=== PATIENT | female | born 1965 | race Caucasian/White ===

== ENCOUNTER 2018-01-22 17:27 | Inpatient (IN) | payer MEDICARE, OTHER ==
--- NOTE | 2018-01-22 17:46 | ED Physician Chart ---
ED Chief Complaint/HPI - Patient Information Date Seen:: 01/22/18 Time Seen:: 17:30 Chief Complaint:: agitation History of Present Illness:: Patient has apparently been exhibiting aggressive and agitated behavior at her extended care facility. Patient's and having diarrhea all week. Historian:: Patient Review:: Transfer documents Reviewed ED Review of Systems - Review of Systems General/Constitutional: No fever, No chills, No weight loss, No weakness, No diaphoresis, No edema, No loss of appetite Skin: No skin lesions, No rash, No bruising Head: No headache, No light-headedness Eyes: No loss of vision, No pain, No diplopia ENT: No earache, No nasal drainage, No sore throat, No tinnitus Neck: No neck pain, No swelling, No thyromegaly, No stiffness, No mass noted Cardio Vascular: No chest pain, No palpitations, No PND, No orthopnea, No edema Pulmonary: No SOB, No cough, No sputum, No wheezing GI: No vomiting, Diarrhea, Pain, No melena, No hematochezia, No constipation, No hematemesis G/U: No dysuria, No frequency, No hematuria Musculoskeletal: No bone or joint pain, No back pain, No muscle pain Endocrine: No polyuria, No polydipsia Psychiatric: No prior psych history, No depression, No anxiety, No suicidal ideation Hematopoietic: No bruising, No lymphadenopathy Allergic/Immuno: No urticaria, No angioedema Neurological: No syncope, No focal symptoms, No weakness, No paresthesia, No headache, No seizure, No dizziness, No confusion, No vertigo ED Past Medical History - Past Medical History Past Medical History: DM, Seizures, Other (ulcerative colitis; status post transient ischemic attack; bipolar disorder) Family History: Other (adopted) Social History: Smoker, Other (smokes up to one and one half packages cigarettes a day; drinks alcohol occasionally) Surgical History: other (small atopic nipple resection) Psychiatricy History: Bipolar Family Medical History - Family Member Mother History Unknown: Yes ED Physical Exam - Physical Examination General/Constitutional: Awake, Well-developed, well-nourished, Alert, No distress, GCS 15, Non-toxic appearing, Ambulatory Other Gen/Cons comments:: Alert and oriented to the correct year only ENMT: Oropharynx nl (edentulous) Neck: No nuchal rigidity Respiratory: Nl effort/Exclusion, Clear to Auscultation Cardio Vascular: RRR, No murmur, gallop, rubs GI: No tenderness/rebounding/guarding : No CVA tenderness Extremities: No edema Neuro/Psych: Alert/oriented Misc: Normal back ED Labs/Radiology/EKG Results - EKG Interpretations Rate & Rhythm: normal sinus rhythm with a rate of 81 [place]: borderline left axis deviation ED Septic Shock - . Is Septic Shock (SBP<90, OR Lactate>4 mmol\L) present?: No
[2018-01-22 18:14] LABS: % BASOPHILS 0.9 % (0.0-2.0); % LYMPHOCYTES 32.6 % (20.0-50.0); % MONOCYTES 7.8 % (2.0-10.0); % NEUTROPHILS 54.7 % (40.0-80.0); BASOPHILE ABSOLUTE 0.1 Th/cumm (0-0.2); EOSINOPHILE ABSOLUTE 0.3 Th/cmm (0.1-0.4); HEMATOCRIT 37.7 % (41.0-60); HEMOGLOBIN 12.4 gm/dL (12-16); LYMPHOCYTE ABSOLUTE 2.6 Th/cmm (1.5-3.0); MEAN CELL VOLUME 88.2 fl (81-100); MEAN CORPUSCULAR HGB CONC 32.9 pg (28.0-36.0); MEAN PLATELET VOLUME 7.5 fl; MONOCYTE ABSOLUTE 0.6 Th/cmm (0.3-1.0); NEUTROPHILE ABSOLUTE 4.3 Th/cmm (1.8-8.0); PLATELET COUNT 312 Th/cmm (150-400); RED BLOOD COUNT 4.27 Mil/cmm (3.80-5.10); RED CELL DISTRIBUTION WIDTH 12.4 % (11.5-20.0); WHITE BLOOD COUNT 7.9 Th/cmm (4.8-10.8)
[2018-01-22 18:16] LABS: URINE SOURCE CLEAN C
[2018-01-22 18:18] LABS: URINE BILIRUBIN NEGATIVE (NEGATIVE); URINE BLOOD LARGE (NEGATIVE); URINE GLUCOSE (UA) >=1000 mg/dL (NEGATIVE); URINE KETONE NEGATIVE (NEGATIVE); URINE LEUKOCYTE ESTERASE NEGATIVE (NEGATIVE); URINE MICROSCOPIC INDICATED? YES; URINE NITRATE NEGATIVE (NEGATIVE); URINE PROTEIN 30 mg/dL (NEGATIVE); URINE UROBILINOGEN 0.2 E.U./dL (0.2 - 1.0)
[2018-01-22 18:23] LABS: URINE CLARITY HAZY (CLEAR); URINE COLOR YELLOW
[2018-01-22 18:24] LABS: URINE BACTERIA NONE SEEN /hpf (NONE SEEN); URINE EPITHELIAL CELLS MODERATE /lpf (FEW); URINE RBC 25-50 /hpf (0-5)
[2018-01-22 18:28] LABS: ALB/GLOB RATIO 1.2 (1.0-1.8); ALBUMIN 3.6 gm/dL (3.7-5.3); ALKALINE PHOSPHATASE 86 U/L (34-104); ANION GAP 14.4 (7.0-16.0); BILIRUBIN,TOTAL 0.2 mg/dL (0.3-1.0); BUN - UREA NITROGEN 21 mg/dL (7-25); CALCIUM SERUM 9.2 mg/dL (8.6-10.3); CARBON DIOXIDE 20.3 mEq/L (21.0-31.0); CHLORIDE 100 mEq/L (98-107); CHOLESTEROL 111 mg/dL (<200); CREATININE - SERUM 0.6 mg/dL (0.6-1.2); GFR AFRICAN-AMERICAN > 60.0 ml/min (>90); GFR NON AFRICAN-AMERICAN > 60.0 ml/min; GLUCOSE 388 mg/dL (70-105); HDL -HIGH DENSITY LIPOPROTEIN 38 mg/dL (23-92); POTASSIUM SERUM 3.7 mEq/L (3.5-5.1); SGOT 8 U/L (13-39); SGPT/ALT 8 U/L (7-52); SODIUM SERUM 131 mEq/L (136-145); TOTAL PROTEIN,SERUM 6.6 gm/dL (6.0-8.3); TRIGLYCERIDES 213 mg/dL (<150)
[2018-01-22] MEDS ORDERED: Sodium Chloride 0.9% 1,000 ML IV ONE ×2 (18:48→19:45)
[2018-01-22] MEDS ORDERED: INSULIN HUMAN REGULAR 100 UNITS/ML UNIT IV ONE (18:50)
[2018-01-22] MEDS ORDERED: INSULIN HUMAN REGULAR 100 UNITS/ML UNIT ONE (19:28)
[2018-01-22] MEDS ORDERED: Potassium Chloride 20 mEq ER Tab PO ONE ×2 (20:43)
[2018-01-22 21:03] LABS: A1C % 11.8 % (4.0-6.0)
[2018-01-22 22:55] VITALS: BP 123/72
[2018-01-22] MEDS ORDERED: Magnesium Hydroxide (MOM) 30 mL UDC PO PRN (23:49)
[2018-01-23] MEDS ORDERED: DESVENLAFAXINE 50 MG PO SCH (09:00)
[2018-01-23] MEDS ORDERED: INSULIN ASPART SLIDING SCALE 100 UNITS/ML UNIT SUBQ SCH ×2 (11:30→16:30)
[2018-01-23] MEDS ORDERED: Mesalamine 250 mg ER Cap PO SCH (12:00)
[2018-01-23] MEDS: Pantoprazole 40 mg EC Tab PO SCH (12:16)
[2018-01-23] MEDS: Mesalamine 250 mg ER Cap PO SCH ×2 (13:52→17:04)
--- NOTE | 2018-01-23 15:55 | History & Physical ---
ADMIT DATE: 01/23/2018 CHIEF COMPLAINT: Agitation and aggressive behavior. HISTORY OF PRESENT ILLNESS: This is a 52-year-old female who is from an extended care facility, admitted here to the Geropsych Unit due to aggressive and agitated behavior towards nursing staff. The patient was also noted to have diarrhea. The patient is a very poor historian. The patient is confused, unable to give any meaningful history. PAST MEDICAL HISTORY: Diabetes, seizure, ulcerative colitis, status post TIA, bipolar disorder. FAMILY HISTORY: Noncontributory. SOCIAL HISTORY: The patient is a current smoker and lives at extended care facility. PAST SURGICAL HISTORY: Small topic nipple resection. FAMILY HISTORY: Noncontributory. REVIEW OF SYSTEMS: Unable to obtain, patient is confused. PHYSICAL EXAMINATION: GENERAL: Thin female, awake, alert with confusion, no apparent distress. VITAL SIGNS: Temperature 97.4, heart rate 60, respiration 19, blood pressure 100/60, O2 of 99%. HEENT: Head; normocephalic, atraumatic. NECK: Supple. No mass. LUNGS: Clear bilaterally. ABDOMEN: Soft, nontender, nondistended. LABORATORY DATA: WBC 7.9, H and H 12.4 and 37.7, platelets 312. Sodium 131, potassium 3.7, chloride 100, BUN 21, creatinine 0.6. The patient had a urinalysis done, positive for UTI. ASSESSMENT: Acute urinary tract infection, psychosis, diabetes, history of seizures, history of transient ischemic attack. PLAN: Seizure precautions will be initiated. We will start the patient on Levaquin 500 mg p.o. daily for 7 days. Accu-Chek a.c. and at bedtime with sliding scale. We will continue to monitor this patient. JOB# [id number]
[2018-01-23] MEDS: INSULIN ASPART SLIDING SCALE 100 UNITS/ML UNIT SUBQ SCH ×2 (17:06→21:00)
[2018-01-23] MEDS ORDERED: Insulin Detemir 100 units/mL 10mL Vial SUBQ SCH (21:00)
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
[2018-01-24] MEDS: INSULIN ASPART SLIDING SCALE 100 UNITS/ML UNIT SUBQ SCH ×4 (06:37→21:21)
[2018-01-24] MEDS: Pantoprazole 40 mg EC Tab PO SCH (06:37)
[2018-01-24] MEDS: Mesalamine 250 mg ER Cap PO SCH (09:07)
[2018-01-24 09:12] LABS: ALB/GLOB RATIO 1.1 (1.0-1.8); ALBUMIN 3.4 gm/dL (3.7-5.3); ALKALINE PHOSPHATASE 71 U/L (34-104); ANION GAP 9.9 (7.0-16.0); BILIRUBIN,TOTAL 0.3 mg/dL (0.3-1.0); BUN - UREA NITROGEN 10 mg/dL (7-25); CARBON DIOXIDE 23.3 mEq/L (21.0-31.0); CHLORIDE 102 mEq/L (98-107); CREATININE - SERUM 0.5 mg/dL (0.6-1.2); GFR AFRICAN-AMERICAN > 60.0 ml/min (>90); GFR NON AFRICAN-AMERICAN > 60.0 ml/min; GLUCOSE 367 mg/dL (70-105); POTASSIUM SERUM 4.2 mEq/L (3.5-5.1); SGOT 10 U/L (13-39); SGPT/ALT 8 U/L (7-52); SODIUM SERUM 131 mEq/L (136-145); TOTAL PROTEIN,SERUM 6.5 gm/dL (6.0-8.3)
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
[2018-01-24] MEDS: Insulin Detemir 100 units/mL 10mL Vial SUBQ SCH (21:22)
--- NOTE | 2018-01-24 23:37 | Progress Notes ---
DATE: 01/24/2018 SUBJECTIVE: The patient was seen by the hallway going to the smoking area. The patient appears guarded and irritable, episodes of agitation, poor historian. Otherwise, the patient is in no acute distress. OBJECTIVE: VITAL SIGNS: Temperature 97.5, heart rate 68, blood pressure 97/67, respiratory rate of 19, and 96% on room air. HEENT: Head is atraumatic and normocephalic. Eyes: Bilateral conjunctivae are clear. Bilateral pupils are equally round and reactive. NECK: Supple. No JVD. CARDIOVASCULAR: S1 and S2, without murmur. PULMONARY: Clear to auscultation. GASTROINTESTINAL: Soft and nontender without guarding. Positive bowel sounds. MUSCULOSKELETAL: No clubbing. No cyanosis noted. ASSESSMENT: 1. Psychosis. 2. Urinary tract infection. 3. Diabetes. 4. Seizure disorder. 5. History of transient ischemic attack. PLAN: We will continue current Levaquin antibiotic and we will wait for the urine culture result. We will also increase the patient's Levemir to 5 units subcutaneous at bedtime and also get a follow up with the psychiatrist to monitor the patient's condition and behavior. Treatment plans were discussed with the patient's nurse. Treatment plans were discussed with Dr. Mandujano. JOB# [id number]
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
[2018-01-25] MEDS: Pantoprazole 40 mg EC Tab PO SCH (06:35)
[2018-01-25] MEDS: INSULIN ASPART SLIDING SCALE 100 UNITS/ML UNIT SUBQ SCH ×4 (06:40→21:20)
[2018-01-25] MEDS ORDERED: Probiotic Screen MC PRN (08:45)
[2018-01-25] MEDS ORDERED: Mesalamine 250 mg ER Cap PO SCH (09:00)
[2018-01-25] MEDS: Lactobacillus Rhamnosus GG 15 Billion CFU CAP.SPRINK PO SCH (09:08)
[2018-01-25] MEDS: Mesalamine 250 mg ER Cap PO SCH (09:19)
--- NOTE | 2018-01-25 20:51 | Progress Notes ---
DATE: 01/25/2018 PSYCHIATRIC PROGRESS NOTE SUBJECTIVE: Staff was spoken to. The patient is interviewed. Mood is noted to be irritable. Affect is constricted. Coping skills are noted to be very poor. Sleep and appetite are also noted to be very poor. The patient has been having difficult time to cope with the stress. The patient is isolative and withdrawn. ASSESSMENT: The patient is still grossly psychotic and impulsive. PLAN: To continue the patient with the supportive therapy and followup. JOB# [id number]
[2018-01-25] MEDS: Insulin Detemir 100 units/mL 10mL Vial SUBQ SCH (21:21)
[2018-01-26] MEDS: Pantoprazole 40 mg EC Tab PO SCH (06:36)
[2018-01-26] MEDS: INSULIN ASPART SLIDING SCALE 100 UNITS/ML UNIT SUBQ SCH ×4 (06:39→21:43)
[2018-01-26] MEDS: Lactobacillus Rhamnosus GG 15 Billion CFU CAP.SPRINK PO SCH (08:39)
[2018-01-26] MEDS: Mesalamine 250 mg ER Cap PO SCH (08:39)
--- NOTE | 2018-01-26 16:01 | General Progress Note ---
Subjective - Review of Systems Events since last encounter: awake alert in no distress Objective - Results Result Diagrams: 01/22/18 18:05 01/24/18 08:50 Recent Labs: Laboratory Last Values WBC 7.9 Th/cmm (4.8-10.8) 01/22/18 18:05 RBC 4.27 Mil/cmm (3.80-5.10) 01/22/18 18:05 Hgb 12.4 gm/dL (12-16) 01/22/18 18:05 Hct 37.7 % (41.0-60) L 01/22/18 18:05 MCV 88.2 fl (81-100) 01/22/18 18:05 MCH 29.0 pg (27.0-31.0) 01/22/18 18: MCHC Differential 32.9 pg (28.0-36.0) 01/22/18 18:05 RDW 12.4 % (11.5-20.0) 01/22/18 18:05 Plt Count 312 Th/cmm (150-400) 01/22/18 18:05 MPV 7.5 fl 01/22/18 18:05 Neutrophils % 54.7 % (40.0-80.0) 01/22/18 18:05 Lymphocytes % 32.6 % (20.0-50.0) 01/22/18 18:05 Monocytes % 7.8 % (2.0-10.0) 01/22/18 18:05 Eosinophils % 4.0 % (0.0-5.0) 01/22/18 18: Basophils % 0.9 % (0.0-2.0) 01/22/18 18:05 Sodium 131 mEq/L (136-145) L 01/24/18 08:50 Potassium 4.2 mEq/L (3.5-5.1) 01/24/18 08:50 Chloride 102 mEq/L (98-107) 01/24/18 08:50 Carbon Dioxide 23.3 mEq/L (21.0-31.0) 01/24/18 08:50 Anion Gap 9.9 (7.0-16.0) 01/24/18 08:50 BUN 10 mg/dL (7-25) 01/24/18 08:50 Creatinine 0.5 mg/dL (0.6-1.2) L 01/24/18 08:50 Est GFR ( Amer) > 60.0 ml/min (>90) 01/24/18 08:50 Est GFR (Non-Af Amer) > 60.0 ml/min 01/24/18 08:50 BUN/Creatinine Ratio 20.0 01/24/18 08:50 Glucose 367 mg/dL (70-105) H 01/24/18 08:50 POC Glucose 136 MG/DL (70 - 105) H 01/26/18 15:50 Hemoglobin A1c % 11.8 % (4.0-6.0) H 01/22/18 18:05 Calcium 9.0 mg/dL (8.6-10.3) 01/24/18 08:50 Total Bilirubin 0.3 mg/dL (0.3-1.0) 01/24/18 08:50 AST 10 U/L (13-39) L 01/24/18 08:50 ALT 8 U/L (7-52) 01/24/18 08:50 Alkaline Phosphatase 71 U/L (34-104) 01/24/18 08:50 Total Protein 6.5 gm/dL (6.0-8.3) 01/24/18 08:50 Albumin 3.4 gm/dL (3.7-5.3) L 01/24/18 08:50 Globulin 3.1 gm/dL 01/24/18 08:50 Albumin/Globulin Ratio 1.1 (1.0-1.8) 01/24/18 08:50 Triglycerides 213 mg/dL (<150) H 01/22/18 18:05 Cholesterol 111 mg/dL (<200) 01/22/18 18:05 LDL Cholesterol Direct 50 mg/dL (75-193) L 01/22/18 18:05 HDL Cholesterol 38 mg/dL (23-92) 01/22/18 18:05 TSH 1.50 uIU/ml (0.34-5.60) 01/22/18 18:05 Urine Source CLEAN C 01/22/18 18:00 Urine Color YELLOW 01/22/18 18:00 Urine Clarity HAZY (CLEAR) 01/22/18 18:00 Urine pH 6.0 (4.6 - 8.0) 01/22/18 18:00 Ur Specific [place] 1.010 (1.005-1.030) 01/22/18 18:00 Urine Protein 30 mg/dL (NEGATIVE) H 01/22/18 18:00 Urine Glucose (UA) >=1000 mg/dL (NEGATIVE) H 01/22/18 18:00 Urine Ketones NEGATIVE mg/dL (NEGATIVE) 01/22/18 18:00 Urine Blood LARGE (NEGATIVE) H 01/22/18 18:00 Urine Nitrate NEGATIVE (NEGATIVE) 01/22/18 18:00 Urine Bilirubin NEGATIVE (NEGATIVE) 01/22/18 18:00 Urine Urobilinogen 0.2 E.U./dL (0.2 - 1.0) 01/22/18 18:00 Ur Leukocyte Esterase NEGATIVE (NEGATIVE) 01/22/18 18:00 Urine RBC 25-50 /hpf (0-5) H 01/22/18 18:00 Urine WBC 6-10 /hpf (0-5) H 01/22/18 18:00 Ur Epithelial Cells MODERATE /lpf (FEW) 01/22/18 18:00 Urine Bacteria NONE SEEN /hpf (NONE SEEN) 01/22/18 18:00 RPR NONREACTIVE (NONREACTIVE) 01/22/18 18:05 - Physical Exam Vitals and I&O: Vital Signs Temp 98.2 F 01/26/18 15:55 Pulse 77 01/26/18 15:55 Resp 18 01/26/18 15:55 BP 96/56 01/26/18 15:55 Pulse Ox 96 01/26/18 15:55 Intake & Output 01/25/18 01/26/18 01/26/18 18:59 06:59 18:59 Intake Total 900 420 Balance 900 420 Intake: Oral 900 420 Other: # Voids 3 2 # Bowel Movements 1 0 Active Medications: Current Medications Acetaminophen (Tylenol) 650 mg PO Q4HR PRN PRN Reason: Mild Pain / Temp above 100 Stop: 03/23/18 23:48 Last Admin: 01/23/18 20:45 Dose: 650 mg Al Hydrox/Mg Hydrox/Simethicone (Maalox) 30 ml PO Q4HR PRN PRN Reason: GI DISTRESS Stop: 03/23/18 23:48 Atorvastatin Calcium (Lipitor) 40 mg PO HS KRIS Stop: 10/02/18 20:59 Last Admin: 01/25/18 21:16 Dose: 40 mg Insulin Aspart (Novolog Insulin Sliding Scale) 0 units SUBQ ACHS [facility]; Protocol Stop: 03/24/18 16:29 Last Admin: 01/26/18 15:57 Dose: Not Given Insulin Detemir (Levemir Insulin) 5 units SUBQ HS [facility] Stop: 03/25/18 20:59 Last Admin: 01/25/18 21:21 Dose: 5 units Lactobacillus Rhamnosus (Culturelle 15b) 1 each PO DAILY KRIS Stop: 03/26/18 08:59 Last Admin: 01/26/18 08:39 Dose: 1 each Levetiracetam (Keppra) 1,000 mg PO BID [facility] Stop: 03/24/18 08:59 Last Admin: 01/26/18 08:40 Dose: 1,000 mg Levofloxacin (Levaquin) 500 mg PO DAILY [facility] Stop: 03/24/18 13:59 Last Admin: 01/26/18 08:39 Dose: 500 mg [place] Carbonate (Eskalith) 300 mg PO BID [facility]; Protocol Stop: 03/24/18 16:59 Last Admin: 01/26/18 08:40 Dose: 300 mg Lorazepam (Ativan) 1 mg PO Q8H PRN; Protocol PRN Reason: Anxiety Stop: 03/23/18 23:39 Last Admin: 01/26/18 02:57 Dose: 1 mg Magnesium Hydroxide (Milk Of Magnesia) 30 ml PO HS PRN PRN Reason: Constipation Magnesium Oxide (Mag-Oxide) 400 mg PO DAILY KRIS Stop: 03/24/18 08:59 Last Admin: 01/26/18 08:40 Dose: 400 mg Mesalamine (Pentasa) 750 mg PO DAILY KRIS Stop: 03/26/18 08:59 Last Admin: 01/26/18 08:39 Dose: 750 mg Metformin HCl (Glucophage) 1,000 mg PO BIDWM [facility] Stop: 03/24/18 08:59 Last Admin: 01/26/18 08:40 Dose: 1,000 mg Miscellaneous (Probiotic Screen) 1 ea MC PRN PRN PRN Reason: PROTOCOL Stop: 03/26/18 08:44 Pantoprazole Sodium (Protonix) 40 mg PO QDAC [facility] Stop: 03/24/18 08:59 Last Admin: 01/26/18 06:36 Dose: 40 mg Quetiapine Fumarate (Seroquel) 200 mg PO DAILY KRIS; Protocol Stop: 03/24/18 13:59 Last Admin: 01/26/18 08:40 Dose: 200 mg Zolpidem Tartrate (Ambien) 5 mg PO HS PRN PRN Reason: Insomnia Stop: 03/23/18 23:48 Last Admin: 01/25/18 21:16 Dose: 5 mg Assessment/Plan - Problem List Patient Problems: All Active Problems AGITATION AND DISRUPTIVE BEHAVIOR (Acute) Nutritional Asmnt/Malnutr-PDOC - Dietary Evaluation Malnutrition Findings (Please click <Entered> for more info): Nutritional Asmnt/Malnutrition Start: 01/23/18 15: 14 Text: Status: Complete Freq: Protocol: Document 01/23/18 15:14 [email or web address] (Rec: 01/23/18 15:28 [id number] [id number]) Nutritional Asmnt/Malnutrition Patient General Information Nutritional Screening High Risk Consult Diagnosis psychosis NOS Pertinent Medical Hx/Surgical Hx DM, seizures, ulverative colitis, 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 Pt seen lying in bed at time of visit, awake and alert. Pt reported appetite fine. Per nurse, pt consumed almost the lunch tray. Pt understands [facility] diet and asked for sugar free food. Current Diet Order/ Nutrition Support [facility] 60gm Pertinent Medications novolog, levemir, levaquin, glucophage, protonix, seroquel Pertinent Labs 8/ Na 131, glucose 288, POC 190-303, A1c 11.8, alb 3.6 Nutritional Hx/Data Height 1.63 m Height (Calculated Centimeters) 162.6 Current Weight (lbs) 63.503 kg Weight (Calculated Kilograms) 63.5 Weight (Calculated Grams) [address]17.9 [place] Body Weight 120 Body Mass Index (BMI) 24.0 Weight Status Approriate GI Symptoms GI Symptoms None Last BM not indicated Difficult in: None Skin Integrity/Comment: intact Current %PO Good (75-100%) Estimated Nutritional Goals BEE in Kcals: Using Current wt Calories/Kcals/Kg 25-30 Kcals Calculated 7321-1706 Protein: Using Current wt Protein g/k-1.2 Protein Calculated 64-77 Fluid: ml 1600-1920ml (1ml/kcal) Nutritional Problem 1. Problem Problem altered nutrition related labs Etiology hx of DM Signs/Symptoms: glucose 288, POC 190-303, A1c 11.8 Malnutrition Alert Is there a minimum of two criteria No selected? Query Text:Check all the applicable criteria. A minimum of two criteria are recommended for diagnosis of either severe or non-severe malnutrition. Malnutrition Related to Morbid Obesity Malnutrition related to morbid obesity No Intervention/Recommendation Comments 1. Continue with [facility] diet as ordered. Diet preference updated. 2. Monitor PO intake, wt, labs and skin integrity 3. F/U as moderate risk in 3-5 days, 01/26-01/28 Expected Outcomes/Goals Expected Outcomes/Goals 1. PO intake to meet at least 75% of nutritional needs. 2. Wt stability, skin to remain intact, labs to approach WNL.
[2018-01-26] MEDS: Insulin Detemir 100 units/mL 10mL Vial SUBQ SCH (22:06)
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
[2018-01-27] MEDS: Pantoprazole 40 mg EC Tab PO SCH (06:34)
[2018-01-27] MEDS: INSULIN ASPART SLIDING SCALE 100 UNITS/ML UNIT SUBQ SCH ×4 (06:34→21:04)
[2018-01-27 06:36] LABS: % EOSINOPHILS 3.9 % (0.0-5.0); % LYMPHOCYTES 40.1 % (20.0-50.0); % MONOCYTES 8.4 % (2.0-10.0); % NEUTROPHILS 46.6 % (40.0-80.0); BASOPHILE ABSOLUTE 0.1 Th/cumm (0-0.2); EOSINOPHILE ABSOLUTE 0.3 Th/cmm (0.1-0.4); HEMATOCRIT 36.1 % (41.0-60); HEMOGLOBIN 12.1 gm/dL (12-16); LYMPHOCYTE ABSOLUTE 2.6 Th/cmm (1.5-3.0); MEAN CORPUSCULAR HEMOGLOBIN 29.4 pg (27.0-31.0); MEAN CORPUSCULAR HGB CONC 33.5 pg (28.0-36.0); MEAN PLATELET VOLUME 8.1 fl; MONOCYTE ABSOLUTE 0.5 Th/cmm (0.3-1.0); PLATELET COUNT 247 Th/cmm (150-400); RED CELL DISTRIBUTION WIDTH 12.8 % (11.5-20.0); WHITE BLOOD COUNT 6.5 Th/cmm (4.8-10.8)
[2018-01-27] MEDS: Lactobacillus Rhamnosus GG 15 Billion CFU CAP.SPRINK PO SCH (08:46)
[2018-01-27] MEDS: Mesalamine 250 mg ER Cap PO SCH (08:47)
[2018-01-27] MEDS: Insulin Detemir 100 units/mL 10mL Vial SUBQ SCH (21:05)
--- NOTE | 2018-01-28 00:58 | Progress Notes ---
DATE: 01/27/2018 SUBJECTIVE: Staff was spoken to. The patient is interviewed. Mood is very anxious and irritable. Affect is constricted. The patient is still very paranoid and has been focused on her stomach and the patient is stating that there is something wrong with it and she has been worried about being . The patient ____ at this time are noted to be very poor. The patient has been getting increasingly psychotic and hence it is decided to increase the dose on the Seroquel to 250 mg tonight and follow the patient up with the supportive therapy. Please note that the patient is not ready to be discharged outside for follow up in view of her acute psychosis. JOB# [id number]
[2018-01-28] MEDS: Pantoprazole 40 mg EC Tab PO SCH (06:45)
[2018-01-28] MEDS: INSULIN ASPART SLIDING SCALE 100 UNITS/ML UNIT SUBQ SCH ×4 (06:45→21:13)
[2018-01-28] MEDS: Lactobacillus Rhamnosus GG 15 Billion CFU CAP.SPRINK PO SCH (08:29)
[2018-01-28] MEDS: Mesalamine 250 mg ER Cap PO SCH (08:30)
--- NOTE | 2018-01-28 09:01 | General Progress Note ---
Subjective - Review of Systems Events since last encounter: patient anxious irritable Objective - Results Result Diagrams: 01/27/18 05:50 01/24/18 08:50 Recent Labs: Laboratory Last Values WBC 6.5 Th/cmm (4.8-10.8) 01/27/18 05:50 RBC 4.10 Mil/cmm (3.80-5.10) 01/27/18 05:50 Hgb 12.1 gm/dL (12-16) 01/27/18 05:50 Hct 36.1 % (41.0-60) L 01/27/18 05:50 MCV 88.0 fl (81-100) 01/27/18 05:50 MCH 29.4 pg (27.0-31.0) 01/27/18 05:50 MCHC Differential 33.5 pg (28.0-36.0) 01/27/18 05:50 RDW 12.8 % (11.5-20.0) 01/27/18 05:50 Plt Count 247 Th/cmm (150-400) 01/27/18 05:50 MPV 8.1 fl 01/27/18 05:50 Neutrophils % 46.6 % (40.0-80.0) 01/27/18 05:50 Lymphocytes % 40.1 % (20.0-50.0) 01/27/18 05:50 Monocytes % 8.4 % (2.0-10.0) 01/27/18 05:50 Eosinophils % 3.9 % (0.0-5.0) 01/27/18 05:50 Basophils % 1.0 % (0.0-2.0) 01/27/18 05:50 ESR 11 mm/hr (0-30) 01/27/18 05:50 Sodium 131 mEq/L (136-145) L 01/24/18 08:50 Potassium 4.2 mEq/L (3.5-5.1) 01/24/18 08:50 Chloride 102 mEq/L (98-107) 01/24/18 08:50 Carbon Dioxide 23.3 mEq/L (21.0-31.0) 01/24/18 08:50 Anion Gap 9.9 (7.0-16.0) 01/24/18 08:50 BUN 10 mg/dL (7-25) 01/24/18 08:50 Creatinine 0.5 mg/dL (0.6-1.2) L 01/24/18 08:50 Est GFR ( Amer) > 60.0 ml/min (>90) 01/24/18 08:50 Est GFR (Non-Af Amer) > 60.0 ml/min 01/24/18 08:50 BUN/Creatinine Ratio 20.0 01/24/18 08:50 Glucose 367 mg/dL (70-105) H 01/24/18 08:50 POC Glucose 186 MG/DL (70 - 105) H 01/27/18 06:18 Hemoglobin A1c % 11.8 % (4.0-6.0) H 01/22/18 18:05 Calcium 9.0 mg/dL (8.6-10.3) 01/24/18 08:50 Total Bilirubin 0.3 mg/dL (0.3-1.0) 01/24/18 08:50 AST 10 U/L (13-39) L 01/24/18 08:50 ALT 8 U/L (7-52) 01/24/18 08:50 Alkaline Phosphatase 71 U/L (34-104) 01/24/18 08:50 C-Reactive Protein < 0.2 mg/dL (0.0-0.9) 01/27/18 05:50 Total Protein 6.5 gm/dL (6.0-8.3) 01/24/18 08:50 Albumin 3.4 gm/dL (3.7-5.3) L 01/24/18 08:50 Globulin 3.1 gm/dL 01/24/18 08:50 Albumin/Globulin Ratio 1.1 (1.0-1.8) 01/24/18 08:50 Triglycerides 213 mg/dL (<150) H 01/22/18 18:05 Cholesterol 111 mg/dL (<200) 01/22/18 18:05 LDL Cholesterol Direct 50 mg/dL (75-193) L 01/22/18 18:05 HDL Cholesterol 38 mg/dL (23-92) 01/22/18 18:05 TSH 1.50 uIU/ml (0.34-5.60) 01/22/18 18:05 Urine Source CLEAN C 01/22/18 18:00 Urine Color YELLOW 01/22/18 18:00 Urine Clarity HAZY (CLEAR) 01/22/18 18:00 Urine pH 6.0 (4.6 - 8.0) 01/22/18 18:00 Ur Specific [place] 1.010 (1.005-1.030) 01/22/18 18:00 Urine Protein 30 mg/dL (NEGATIVE) H 01/22/18 18:00 Urine Glucose (UA) >=1000 mg/dL (NEGATIVE) H 01/22/18 18:00 Urine Ketones NEGATIVE mg/dL (NEGATIVE) 01/22/18 18:00 Urine Blood LARGE (NEGATIVE) H 01/22/18 18:00 Urine Nitrate NEGATIVE (NEGATIVE) 01/22/18 18:00 Urine Bilirubin NEGATIVE (NEGATIVE) 01/22/18 18:00 Urine Urobilinogen 0.2 E.U./dL (0.2 - 1.0) 01/22/18 18:00 Ur Leukocyte Esterase NEGATIVE (NEGATIVE) 01/22/18 18:00 Urine RBC 25-50 /hpf (0-5) H 01/22/18 18:00 Urine WBC 6-10 /hpf (0-5) H 01/22/18 18:00 Ur Epithelial Cells MODERATE /lpf (FEW) 01/22/18 18:00 Urine Bacteria NONE SEEN /hpf (NONE SEEN) 01/22/18 18:00 RPR NONREACTIVE (NONREACTIVE) 01/22/18 18:05 - Physical Exam Vitals and I&O: Vital Signs Temp 97 F 01/28/18 06:44 Pulse 70 01/28/18 06:44 Resp 20 01/28/18 06:44 BP 110/72 01/28/18 06:44 Pulse Ox 98 01/28/18 06:44 Intake & Output 01/27/18 01/28/18 01/28/18 18:59 06:59 18:59 Intake Total 2200 360 Balance 2200 360 Weight (lbs) 63.503 kg Intake: Oral 2200 360 Other: # Voids 4 2 # Bowel Movements 0 0 Stool Characteristics Formed Formed Weight Source Bedscale Active Medications: Current Medications Acetaminophen (Tylenol) 650 mg PO Q4HR PRN PRN Reason: Mild Pain / Temp above 100 Stop: 03/23/18 23:48 Last Admin: 01/26/18 18:56 Dose: 650 mg Al Hydrox/Mg Hydrox/Simethicone (Maalox) 30 ml PO Q4HR PRN PRN Reason: GI DISTRESS Stop: 03/23/18 23:48 Atorvastatin Calcium (Lipitor) 40 mg PO HS [facility] Stop: 03/24/18 20:59 Last Admin: 01/27/18 21:03 Dose: 40 mg Docusate Sodium (Colace) 200 mg PO BID KRIS Stop: 03/28/18 08:59 Last Admin: 01/28/18 08:29 Dose: 200 mg Insulin Aspart (Novolog Insulin Sliding Scale) 0 units SUBQ ACHS [facility]; Protocol Stop: 03/24/18 16:29 Last Admin: 01/28/18 06:45 Dose: 3 units Insulin Detemir (Levemir Insulin) 5 units SUBQ HS [facility] Stop: 03/25/18 20:59 Last Admin: 01/27/18 21:05 Dose: 5 units Lactobacillus Rhamnosus (Culturelle 15b) 1 each PO DAILY [facility] Stop: 03/26/18 08:59 Last Admin: 01/28/18 08:29 Dose: 1 each Levetiracetam (Keppra) 1,000 mg PO BID [facility] Stop: 03/24/18 08:59 Last Admin: 01/28/18 08:29 Dose: 1,000 mg Levofloxacin (Levaquin) 500 mg PO DAILY [facility] Stop: 03/24/18 13:59 Last Admin: 01/28/18 08:29 Dose: 500 mg [place] Carbonate (Eskalith) 300 mg PO BID [facility]; Protocol Stop: 03/24/18 16:59 Last Admin: 01/28/18 08:30 Dose: 300 mg Lorazepam (Ativan) 1 mg PO Q8H PRN; Protocol PRN Reason: Anxiety Stop: 03/23/18 23:39 Last Admin: 01/27/18 21:03 Dose: 1 mg Magnesium Hydroxide (Milk Of Magnesia) 30 ml PO HS PRN PRN Reason: Constipation Magnesium Oxide (Mag-Oxide) 400 mg PO DAILY [facility] Stop: 03/24/18 08:59 Last Admin: 01/28/18 08:30 Dose: 400 mg Mesalamine (Pentasa) 750 mg PO DAILY [facility] Stop: 03/26/18 08:59 Last Admin: 01/28/18 08:30 Dose: 750 mg Metformin HCl (Glucophage) 1,000 mg PO BIDWM KRIS Stop: 03/24/18 08:59 Last Admin: 01/28/18 08:28 Dose: 1,000 mg Miscellaneous (Probiotic Screen) 1 ea MC PRN PRN PRN Reason: PROTOCOL Stop: 03/26/18 08:44 Pantoprazole Sodium (Protonix) 40 mg PO QDAC KRIS Stop: 03/24/18 08:59 Last Admin: 01/28/18 06:45 Dose: 40 mg Quetiapine Fumarate 200 mg/ (Quetiapine Fumarate 50 mg) 250 mg PO DAILY KRIS Stop: 03/29/18 08:59 Last Admin: 01/28/18 08:35 Dose: 250 mg Zolpidem Tartrate (Ambien) 5 mg PO HS PRN PRN Reason: Insomnia Stop: 03/23/18 23:48 Last Admin: 01/26/18 21:00 Dose: 5 mg Assessment/Plan - Problem List Patient Problems: All Active Problems AGITATION AND DISRUPTIVE BEHAVIOR (Acute) Nutritional Asmnt/Malnutr-PDOC - Dietary Evaluation Malnutrition Findings (Please click <Entered> for more info): Nutritional Asmnt/Malnutrition Start: 01/23/18 15: 14 Text: Status: Complete Freq: Protocol: Document 01/23/18 15:14 LCHENG (Rec: 01/23/18 15:28 [id number]) Nutritional Asmnt/Malnutrition Patient General Information Nutritional Screening High Risk Consult Diagnosis psychosis NOS Pertinent Medical Hx/Surgical Hx DM, seizures, ulverative colitis, 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 Pt seen lying in bed at time of visit, awake and alert. Pt reported appetite fine. Per nurse, pt consumed almost the lunch tray. Pt understands [facility] diet and asked for sugar free food. Current Diet Order/ Nutrition Support [facility] 60gm Pertinent Medications novolog, levemir, levaquin, glucophage, protonix, seroquel Pertinent Labs 01/22 Na 131, glucose 288, POC 190-303, A1c 11.8, alb 3.6 Nutritional Hx/Data Height 1.63 m Height (Calculated Centimeters) 162.6 Current Weight (lbs) 63.503 kg Weight (Calculated Kilograms) 63.5 Weight (Calculated Grams) 49004.9 [place] Body Weight 120 Body Mass Index (BMI) 24.0 Weight Status Approriate GI Symptoms GI Symptoms None Last BM not indicated Difficult in: None Skin Integrity/Comment: intact Current %PO Good (75-100%) Estimated Nutritional Goals BEE in Kcals: Using Current wt Calories/Kcals/Kg 25-30 Kcals Calculated 1408-4829 Protein: Using Current wt Protein g/k-1.2 Protein Calculated 64-77 Fluid: ml 1600-1920ml (1ml/kcal) Nutritional Problem 1. Problem Problem altered nutrition related labs Etiology hx of DM Signs/Symptoms: glucose 288, POC 190-303, A1c 11.8 Malnutrition Alert Is there a minimum of two criteria No selected? Query Text:Check all the applicable criteria. A minimum of two criteria are recommended for diagnosis of either severe or non-severe malnutrition. Malnutrition Related to Morbid Obesity Malnutrition related to morbid obesity No Intervention/Recommendation Comments 1. Continue with [facility] diet as ordered. Diet preference updated. 2. Monitor PO intake, wt, labs and skin integrity 3. F/U as moderate risk in 3-5 days, 01/26-01/28 Expected Outcomes/Goals Expected Outcomes/Goals 1. PO intake to meet at least 75% of nutritional needs. 2. Wt stability, skin to remain intact, labs to approach WNL.
--- NOTE | 2018-01-28 14:32 | GI Progress Note ---
Subjective - Review of Systems Service Date: 01/28/18 Events since last encounter: Patient emotional; no further stools, not c/o of any GI issues Objective - Results Result Diagrams: 01/27/18 05:50 01/24/18 08:50 Recent Labs: Laboratory Last Values WBC 6.5 Th/cmm (4.8-10.8) 01/27/18 05:50 RBC 4.10 Mil/cmm (3.80-5.10) 01/27/18 05:50 Hgb 12.1 gm/dL (12-16) 01/27/18 05:50 Hct 36.1 % (41.0-60) L 01/27/18 05:50 MCV 88.0 fl (81-100) 01/27/18 05:50 MCH 29.4 pg (27.0-31.0) 01/27/18 05:50 MCHC Differential 33.5 pg (28.0-36.0) 01/27/18 05:50 RDW 12.8 % (11.5-20.0) 01/27/18 05:50 Plt Count 247 Th/cmm (150-400) 01/27/18 05:50 MPV 8.1 fl 01/27/18 05:50 Neutrophils % 46.6 % (40.0-80.0) 01/27/18 05:50 Lymphocytes % 40.1 % (20.0-50.0) 01/27/18 05:50 Monocytes % 8.4 % (2.0-10.0) 01/27/18 05:50 Eosinophils % 3.9 % (0.0-5.0) 01/27/18 05:50 Basophils % 1.0 % (0.0-2.0) 01/27/18 05:50 ESR 11 mm/hr (0-30) 01/27/18 05:50 Sodium 131 mEq/L (136-145) L 01/24/18 08:50 Potassium 4.2 mEq/L (3.5-5.1) 01/24/18 08:50 Chloride 102 mEq/L (98-107) 01/24/18 08:50 Carbon Dioxide 23.3 mEq/L (21.0-31.0) 01/24/18 08:50 Anion Gap 9.9 (7.0-16.0) 01/24/18 08:50 BUN 10 mg/dL (7-25) 01/24/18 08:50 Creatinine 0.5 mg/dL (0.6-1.2) L 01/24/18 08:50 Est GFR ( Amer) > 60.0 ml/min (>90) 01/24/18 08:50 Est GFR (Non-Af Amer) > 60.0 ml/min 01/24/18 08:50 BUN/Creatinine Ratio 20.0 01/24/18 08:50 Glucose 367 mg/dL (70-105) H 01/24/18 08:50 POC Glucose 238 MG/DL (70 - 105) H 01/28/18 11:53 Hemoglobin A1c % 11.8 % (4.0-6.0) H 01/22/18 18:05 Calcium 9.0 mg/dL (8.6-10.3) 01/24/18 08:50 Total Bilirubin 0.3 mg/dL (0.3-1.0) 01/24/18 08:50 AST 10 U/L (13-39) L 01/24/18 08:50 ALT 8 U/L (7-52) 01/24/18 08:50 Alkaline Phosphatase 71 U/L (34-104) 01/24/18 08:50 C-Reactive Protein < 0.2 mg/dL (0.0-0.9) 01/27/18 05:50 Total Protein 6.5 gm/dL (6.0-8.3) 01/24/18 08:50 Albumin 3.4 gm/dL (3.7-5.3) L 01/24/18 08:50 Globulin 3.1 gm/dL 01/24/18 08:50 Albumin/Globulin Ratio 1.1 (1.0-1.8) 01/24/18 08:50 Triglycerides 213 mg/dL (<150) H 01/22/18 18:05 Cholesterol 111 mg/dL (<200) 01/22/18 18:05 LDL Cholesterol Direct 50 mg/dL (75-193) L 01/22/18 18:05 HDL Cholesterol 38 mg/dL (23-92) 01/22/18 18:05 TSH 1.50 uIU/ml (0.34-5.60) 01/22/18 18:05 Urine Source CLEAN C 01/22/18 18:00 Urine Color YELLOW 01/22/18 18:00 Urine Clarity HAZY (CLEAR) 01/22/18 18:00 Urine pH 6.0 (4.6 - 8.0) 01/22/18 18:00 Ur Specific [place] 1.010 (1.005-1.030) 01/22/18 18:00 Urine Protein 30 mg/dL (NEGATIVE) H 01/22/18 18:00 Urine Glucose (UA) >=1000 mg/dL (NEGATIVE) H 01/22/18 18:00 Urine Ketones NEGATIVE mg/dL (NEGATIVE) 01/22/18 18:00 Urine Blood LARGE (NEGATIVE) H 01/22/18 18:00 Urine Nitrate NEGATIVE (NEGATIVE) 01/22/18 18:00 Urine Bilirubin NEGATIVE (NEGATIVE) 01/22/18 18:00 Urine Urobilinogen 0.2 E.U./dL (0.2 - 1.0) 01/22/18 18:00 Ur Leukocyte Esterase NEGATIVE (NEGATIVE) 01/22/18 18:00 Urine RBC 25-50 /hpf (0-5) H 01/22/18 18:00 Urine WBC 6-10 /hpf (0-5) H 01/22/18 18:00 Ur Epithelial Cells MODERATE /lpf (FEW) 01/22/18 18:00 Urine Bacteria NONE SEEN /hpf (NONE SEEN) 01/22/18 18:00 RPR NONREACTIVE (NONREACTIVE) 01/22/18 18:05 - Physical Exam Vitals and I&O: Vital Signs Temp 97 F 01/28/18 06:44 Pulse 70 01/28/18 06:44 Resp 20 01/28/18 06:44 BP 110/72 01/28/18 06:44 Pulse Ox 98 01/28/18 06:44 Intake & Output 01/27/18 01/28/18 01/28/18 18:59 06:59 18:59 Intake Total 2200 360 Balance 2200 360 Weight (lbs) 63.503 kg Intake: Oral 2200 360 Other: # Voids 4 2 # Bowel Movements 0 0 Stool Characteristics Formed Formed Formed Weight Source Bedscale Active Medications: Current Medications Acetaminophen (Tylenol) 650 mg PO Q4HR PRN PRN Reason: Mild Pain / Temp above 100 Stop: 03/23/18 23:48 Last Admin: 01/26/18 18:56 Dose: 650 mg Al Hydrox/Mg Hydrox/Simethicone (Maalox) 30 ml PO Q4HR PRN PRN Reason: GI DISTRESS Stop: 03/23/18 23:48 Atorvastatin Calcium (Lipitor) 40 mg PO HS [facility] Stop: 03/24/18 20:59 Last Admin: 01/27/18 21:03 Dose: 40 mg Docusate Sodium (Colace) 200 mg PO BID KRIS Stop: 03/28/18 08:59 Last Admin: 01/28/18 08:29 Dose: 200 mg Insulin Aspart (Novolog Insulin Sliding Scale) 0 units SUBQ ACHS [facility]; Protocol Stop: 03/24/18 16:29 Last Admin: 01/28/18 12:00 Dose: 5 units Insulin Detemir (Levemir Insulin) 5 units SUBQ HS [facility] Stop: 03/25/18 20:59 Last Admin: 01/27/18 21:05 Dose: 5 units Lactobacillus Rhamnosus (Culturelle 15b) 1 each PO DAILY [facility] Stop: 03/26/18 08:59 Last Admin: 01/28/18 08:29 Dose: 1 each Levetiracetam (Keppra) 1,000 mg PO BID [facility] Stop: 03/24/18 08:59 Last Admin: 01/28/18 08:29 Dose: 1,000 mg Levofloxacin (Levaquin) 500 mg PO DAILY [facility] Stop: 03/24/18 13:59 Last Admin: 01/28/18 08:29 Dose: 500 mg [place] Carbonate (Eskalith) 300 mg PO BID [facility]; Protocol Stop: 03/24/18 16:59 Last Admin: 01/28/18 08:30 Dose: 300 mg Lorazepam (Ativan) 1 mg PO Q8H PRN; Protocol PRN Reason: Anxiety Stop: 03/23/18 23:39 Last Admin: 01/27/18 21:03 Dose: 1 mg Magnesium Hydroxide (Milk Of Magnesia) 30 ml PO HS PRN PRN Reason: Constipation Magnesium Oxide (Mag-Oxide) 400 mg PO DAILY [facility] Stop: 03/24/18 08:59 Last Admin: 01/28/18 08:30 Dose: 400 mg Mesalamine (Pentasa) 750 mg PO DAILY [facility] Stop: 03/26/18 08:59 Last Admin: 01/28/18 08:30 Dose: 750 mg Metformin HCl (Glucophage) 1,000 mg PO BIDWM [facility]IS Stop: 03/24/18 08:59 Last Admin: 01/28/18 08:28 Dose: 1,000 mg Miscellaneous (Probiotic Screen) 1 ea MC PRN PRN PRN Reason: PROTOCOL Stop: 03/26/18 08:44 Pantoprazole Sodium (Protonix) 40 mg PO QDAC [facility] Stop: 03/24/18 08:59 Last Admin: 01/28/18 06:45 Dose: 40 mg Quetiapine Fumarate 200 mg/ (Quetiapine Fumarate 50 mg) 250 mg PO DAILY [facility] Stop: 03/29/18 08:59 Last Admin: 01/28/18 08:35 Dose: 250 mg Zolpidem Tartrate (Ambien) 5 mg PO HS PRN PRN Reason: Insomnia Stop: 03/23/18 23:48 Last Admin: 01/26/18 21:00 Dose: 5 mg General: Alert, Oriented x3, Cooperative, No acute distress HEENT: Atraumatic, PERRLA, EOMI Neck: Supple Cardiovascular: Regular rate Assessment/Plan - Problem List Patient Problems: All Active Problems AGITATION AND DISRUPTIVE BEHAVIOR (Acute) - Assessment Assessment: 1. Hx of UC 2. Anxiety 3. Hematochezia -Would wait until psychiatric issues are more stable and when patient is a more reliable historian -continue 5ASA at currnet dose -Hg stable, no physical exam symptoms for worsening uC or colitis -No endoscopy planned -Gi will sign off Please call or page if any questions
[2018-01-28] MEDS: Insulin Detemir 100 units/mL 10mL Vial SUBQ SCH (21:13)
--- NOTE | 2018-01-29 01:58 | Progress Notes ---
DATE: 01/28/2018 SUBJECTIVE: Staff was spoken to. The patient is interviewed. Mood is noted to be irritable. Affect is constricted. Insight and judgment at this time are noted to be impaired. Impulse control is noted to be poor. Coping skills are also noted to be very poor. The patient has been having difficult time to cope with the stress. The patient is still impulsive and has been having poor coping skills. The patient is still isolative and withdrawn. No side effects to the medications are noted. The patient is paranoid and has been accusing people of doing things behind and she states that she has been ____. ASSESSMENT: The patient is still grossly psychotic. PLAN: To continue the patient with the supportive therapy and increase the dose on the Seroquel to 300 mg and follow the patient up with the supportive therapy. JOB# [id number]
[2018-01-29] MEDS: INSULIN ASPART SLIDING SCALE 100 UNITS/ML UNIT SUBQ SCH ×4 (07:10→20:41)
[2018-01-29] MEDS: Pantoprazole 40 mg EC Tab PO SCH (07:13)
[2018-01-29] MEDS: Lactobacillus Rhamnosus GG 15 Billion CFU CAP.SPRINK PO SCH (09:41)
[2018-01-29] MEDS: Mesalamine 250 mg ER Cap PO SCH (10:13)
--- NOTE | 2018-01-29 15:49 | General Progress Note ---
Subjective - Review of Systems Subjective: patient is agitated, reports no pain Objective - Results Result Diagrams: 01/27/18 05:50 01/24/18 08:50 Recent Labs: Laboratory Last Values WBC 6.5 Th/cmm (4.8-10.8) 01/27/18 05:50 RBC 4.10 Mil/cmm (3.80-5.10) 01/27/18 05:50 Hgb 12.1 gm/dL (12-16) 01/27/18 05:50 Hct 36.1 % (41.0-60) L 01/27/18 05:50 MCV 88.0 fl (81-100) 01/27/18 05:50 MCH 29.4 pg (27.0-31.0) 01/27/18 05:50 MCHC Differential 33.5 pg (28.0-36.0) 01/27/18 05:50 RDW 12.8 % (11.5-20.0) 01/27/18 05:50 Plt Count 247 Th/cmm (150-400) 01/27/18 05:50 MPV 8.1 fl 01/27/18 05:50 Neutrophils % 46.6 % (40.0-80.0) 01/27/18 05:50 Lymphocytes % 40.1 % (20.0-50.0) 01/27/18 05:50 Monocytes % 8.4 % (2.0-10.0) 01/27/18 05:50 Eosinophils % 3.9 % (0.0-5.0) 01/27/18 05:50 Basophils % 1.0 % (0.0-2.0) 01/27/18 05:50 ESR 11 mm/hr (0-30) 01/27/18 05:50 Sodium 131 mEq/L (136-145) L 01/24/18 08:50 Potassium 4.2 mEq/L (3.5-5.1) 01/24/18 08:50 Chloride 102 mEq/L (98-107) 01/24/18 08:50 Carbon Dioxide 23.3 mEq/L (21.0-31.0) 01/24/18 08:50 Anion Gap 9.9 (7.0-16.0) 01/24/18 08:50 BUN 10 mg/dL (7-25) 01/24/18 08:50 Creatinine 0.5 mg/dL (0.6-1.2) L 01/24/18 08:50 Est GFR ( Amer) > 60.0 ml/min (>90) 01/24/18 08:50 Est GFR (Non-Af Amer) > 60.0 ml/min 01/24/18 08:50 BUN/Creatinine Ratio 20.0 01/24/18 08:50 Glucose 367 mg/dL (70-105) H 01/24/18 08:50 POC Glucose 247 MG/DL (70 - 105) H 01/29/18 11:55 Hemoglobin A1c % 11.8 % (4.0-6.0) H 01/22/18 18:05 Calcium 9.0 mg/dL (8.6-10.3) 01/24/18 08:50 Total Bilirubin 0.3 mg/dL (0.3-1.0) 01/24/18 08:50 AST 10 U/L (13-39) L 01/24/18 08:50 ALT 8 U/L (7-52) 01/24/18 08:50 Alkaline Phosphatase 71 U/L (34-104) 01/24/18 08:50 C-Reactive Protein < 0.2 mg/dL (0.0-0.9) 01/27/18 05:50 Total Protein 6.5 gm/dL (6.0-8.3) 01/24/18 08:50 Albumin 3.4 gm/dL (3.7-5.3) L 01/24/18 08:50 Globulin 3.1 gm/dL 01/24/18 08:50 Albumin/Globulin Ratio 1.1 (1.0-1.8) 01/24/18 08:50 Triglycerides 213 mg/dL (<150) H 01/22/18 18:05 Cholesterol 111 mg/dL (<200) 01/22/18 18:05 LDL Cholesterol Direct 50 mg/dL (75-193) L 01/22/18 18:05 HDL Cholesterol 38 mg/dL (23-92) 01/22/18 18:05 TSH 1.50 uIU/ml (0.34-5.60) 01/22/18 18:05 Urine Source CLEAN C 01/22/18 18:00 Urine Color YELLOW 01/22/18 18:00 Urine Clarity HAZY (CLEAR) 01/22/18 18:00 Urine pH 6.0 (4.6 - 8.0) 01/22/18 18:00 Ur Specific [place] 1.010 (1.005-1.030) 01/22/18 18:00 Urine Protein 30 mg/dL (NEGATIVE) H 01/22/18 18:00 Urine Glucose (UA) >=1000 mg/dL (NEGATIVE) H 01/22/18 18:00 Urine Ketones NEGATIVE mg/dL (NEGATIVE) 01/22/18 18:00 Urine Blood LARGE (NEGATIVE) H 01/22/18 18:00 Urine Nitrate NEGATIVE (NEGATIVE) 01/22/18 18:00 Urine Bilirubin NEGATIVE (NEGATIVE) 01/22/18 18:00 Urine Urobilinogen 0.2 E.U./dL (0.2 - 1.0) 01/22/18 18:00 Ur Leukocyte Esterase NEGATIVE (NEGATIVE) 01/22/18 18:00 Urine RBC 25-50 /hpf (0-5) H 01/22/18 18:00 Urine WBC 6-10 /hpf (0-5) H 01/22/18 18:00 Ur Epithelial Cells MODERATE /lpf (FEW) 01/22/18 18:00 Urine Bacteria NONE SEEN /hpf (NONE SEEN) 01/22/18 18:00 RPR NONREACTIVE (NONREACTIVE) 01/22/18 18:05 - Physical Exam Vitals and I&O: Vital Signs Temp 97.8 F 01/28/18 20:09 Pulse 79 01/28/18 20:09 Resp 20 01/28/18 20:09 BP 111/62 01/28/18 20:09 Pulse Ox 98 01/28/18 20:09 Intake & Output 01/28/18 01/29/18 01/29/18 18:59 06:59 18:59 Intake Total 900 500 Balance 900 500 Intake: Oral 900 500 Other: # Voids 4 5 # Bowel Movements 1 0 Stool Characteristics Formed Formed Formed Active Medications: Current Medications Acetaminophen (Tylenol) 650 mg PO Q4HR PRN PRN Reason: Mild Pain / Temp above 100 Stop: 03/23/18 23:48 Last Admin: 01/29/18 11:59 Dose: 650 mg Al Hydrox/Mg Hydrox/Simethicone (Maalox) 30 ml PO Q4HR PRN PRN Reason: GI DISTRESS Stop: 03/23/18 23:48 Atorvastatin Calcium (Lipitor) 40 mg PO HS [facility] Stop: 03/24/18 20:59 Last Admin: 01/28/18 21:12 Dose: 40 mg Docusate Sodium (Colace) 200 mg PO BID [facility] Stop: 03/28/18 08:59 Last Admin: 01/29/18 09:42 Dose: 200 mg Insulin Aspart (Novolog Insulin Sliding Scale) 0 units SUBQ ACHS [facility]; Protocol Stop: 03/24/18 16:29 Last Admin: 01/29/18 12:00 Dose: 5 units Insulin Detemir (Levemir Insulin) 5 units SUBQ HS [facility] Stop: 03/25/18 20:59 Last Admin: 01/28/18 21:13 Dose: 5 units Lactobacillus Rhamnosus (Culturelle 15b) 1 each PO DAILY [facility] Stop: 03/26/18 08:59 Last Admin: 01/29/18 09:41 Dose: 1 each Levetiracetam (Keppra) 1,000 mg PO BID [facility] Stop: 03/24/18 08:59 Last Admin: 01/29/18 09:41 Dose: 1,000 mg [place] Carbonate (Eskalith) 300 mg PO BID [facility]; Protocol Stop: 03/24/18 16:59 Last Admin: 01/29/18 09:41 Dose: 300 mg Lorazepam (Ativan) 1 mg PO Q8H PRN; Protocol PRN Reason: Anxiety Stop: 03/23/18 23:39 Last Admin: 01/28/18 18:46 Dose: 1 mg Magnesium Hydroxide (Milk Of Magnesia) 30 ml PO HS PRN PRN Reason: Constipation Magnesium Oxide (Mag-Oxide) 400 mg PO DAILY [facility] Stop: 03/24/18 08:59 Last Admin: 01/29/18 09:41 Dose: 400 mg Mesalamine (Pentasa) 750 mg PO DAILY [facility] Stop: 03/26/18 08:59 Last Admin: 01/29/18 10:13 Dose: 750 mg Metformin HCl (Glucophage) 1,000 mg PO BIDWM [facility] Stop: 03/24/18 08:59 Last Admin: 01/29/18 09:42 Dose: 1,000 mg Miscellaneous (Probiotic Screen) 1 ea MC PRN PRN PRN Reason: PROTOCOL Stop: 03/26/18 08:44 Pantoprazole Sodium (Protonix) 40 mg PO QDAC [facility] Stop: 03/24/18 08:59 Last Admin: 01/29/18 07:13 Dose: 40 mg Quetiapine Fumarate (Seroquel) 300 mg PO HS [facility] Stop: 03/29/18 20:59 Last Admin: 01/28/18 21:12 Dose: 300 mg Zolpidem Tartrate (Ambien) 5 mg PO HS PRN PRN Reason: Insomnia Stop: 03/23/18 23:48 Last Admin: 01/28/18 21:12 Dose: 5 mg General: Alert, Oriented x3, Cooperative, No acute distress HEENT: Atraumatic, PERRLA, EOMI Neck: Supple Cardiovascular: Regular rate Lungs: Clear to auscultation Assessment/Plan - Problem List Patient Problems: All Active Problems AGITATION AND DISRUPTIVE BEHAVIOR (Acute) - Assessment Assessment: psychotic h/o UC anxiety hematochezia - Plan Plan: cpm will monitor Nutritional Asmnt/Malnutr-PDOC - Dietary Evaluation Malnutrition Findings (Please click <Entered> for more info): Nutritional Asmnt/Malnutrition Start: 01/23/18 15: 14 Text: Status: Complete Freq: Protocol: Document 01/23/18 15:14 LCHENG (Rec: 01/23/18 15:28 [id number]) Nutritional Asmnt/Malnutrition Patient General Information Nutritional Screening High Risk Consult Diagnosis psychosis NOS Pertinent Medical Hx/Surgical Hx DM, seizures, ulverative colitis, 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 Pt seen lying in bed at time of visit, awake and alert. Pt reported appetite fine. Per nurse, pt consumed almost the lunch tray. Pt understands [facility] diet and asked for sugar free food. Current Diet Order/ Nutrition Support [facility] 60gm Pertinent Medications novolog, levemir, levaquin, glucophage, protonix, seroquel Pertinent Labs 01/22 Na 131, glucose 288, POC 190-303, A1c 11.8, alb 3.6 Nutritional Hx/Data Height 1.63 m Height (Calculated Centimeters) 162.6 Current Weight (lbs) 63.503 kg Weight (Calculated Kilograms) 63.5 Weight (Calculated Grams) 39077.9 [place] Body Weight 120 Body Mass Index (BMI) 24.0 Weight Status Approriate GI Symptoms GI Symptoms None Last BM not indicated Difficult in: None Skin Integrity/Comment: intact Current %PO Good (75-100%) Estimated Nutritional Goals BEE in Kcals: Using Current wt Calories/Kcals/Kg 25-30 Kcals Calculated 9120-3642 Protein: Using Current wt Protein g/k-1.2 Protein Calculated 64-77 Fluid: ml 1600-1920ml (1ml/kcal) Nutritional Problem 1. Problem Problem altered nutrition related labs Etiology hx of DM Signs/Symptoms: glucose 288, POC 190-303, A1c 11.8 Malnutrition Alert Is there a minimum of two criteria No selected? Query Text:Check all the applicable criteria. A minimum of two criteria are recommended for diagnosis of either severe or non-severe malnutrition. Malnutrition Related to Morbid Obesity Malnutrition related to morbid obesity No Intervention/Recommendation Comments 1. Continue with [facility] diet as ordered. Diet preference updated. 2. Monitor PO intake, wt, labs and skin integrity 3. F/U as moderate risk in 3-5 days, 01/26-01/28 Expected Outcomes/Goals Expected Outcomes/Goals 1. PO intake to meet at least 75% of nutritional needs. 2. Wt stability, skin to remain intact, labs to approach WNL.
[2018-01-29] MEDS: Insulin Detemir 100 units/mL 10mL Vial SUBQ SCH (20:41)
--- NOTE | 2018-01-30 00:38 | Progress Notes ---
DATE: 01/29/2018 SUBJECTIVE: Staff was spoken to. The patient is interviewed. Mood is noted to be irritable. Affect is constricted. The patient continues to be paranoid. The patient is isolative and withdrawn. The patient has been on Seroquel. She does not want to take more than what she is on now because the medication is making her to be too sleepy. The appetite is noted to be fair. The patient, however, tends to be isolative and withdrawn. ASSESSMENT: The patient is still grossly psychotic. PLAN: To continue the patient with the supportive therapy, I encouraged the patient to verbalize the concerns rather than to act out. JOB# [id number]
[2018-01-30] MEDS: INSULIN ASPART SLIDING SCALE 100 UNITS/ML UNIT SUBQ SCH ×4 (06:49→21:44)
[2018-01-30] MEDS: Mesalamine 250 mg ER Cap PO SCH (08:26)
[2018-01-30] MEDS: Lactobacillus Rhamnosus GG 15 Billion CFU CAP.SPRINK PO SCH (08:27)
[2018-01-30] MEDS: Pantoprazole 40 mg EC Tab PO SCH (16:37)
--- NOTE | 2018-01-30 17:06 | GI Progress Note ---
Subjective - Review of Systems Service Date: 01/30/18 Subjective: Patient tearful which is usual, but staff noticed her abdomen was larger, and having more difficulty using the restroom Objective - Results Result Diagrams: 01/27/18 05:50 01/24/18 08:50 Recent Labs: Laboratory Last Values WBC 6.5 Th/cmm (4.8-10.8) 01/27/18 05:50 RBC 4.10 Mil/cmm (3.80-5.10) 01/27/18 05:50 Hgb 12.1 gm/dL (12-16) 01/27/18 05:50 Hct 36.1 % (41.0-60) L 01/27/18 05:50 MCV 88.0 fl (81-100) 01/27/18 05:50 MCH 29.4 pg (27.0-31.0) 01/27/18 05:50 MCHC Differential 33.5 pg (28.0-36.0) 01/27/18 05:50 RDW 12.8 % (11.5-20.0) 01/27/18 05:50 Plt Count 247 Th/cmm (150-400) 01/27/18 05:50 MPV 8.1 fl 01/27/18 05:50 Neutrophils % 46.6 % (40.0-80.0) 01/27/18 05:50 Lymphocytes % 40.1 % (20.0-50.0) 01/27/18 05:50 Monocytes % 8.4 % (2.0-10.0) 01/27/18 05:50 Eosinophils % 3.9 % (0.0-5.0) 01/27/18 05:50 Basophils % 1.0 % (0.0-2.0) 01/27/18 05:50 ESR 11 mm/hr (0-30) 01/27/18 05:50 Sodium 131 mEq/L (136-145) L 01/24/18 08:50 Potassium 4.2 mEq/L (3.5-5.1) 01/24/18 08:50 Chloride 102 mEq/L (98-107) 01/24/18 08:50 Carbon Dioxide 23.3 mEq/L (21.0-31.0) 01/24/18 08:50 Anion Gap 9.9 (7.0-16.0) 01/24/18 08:50 BUN 10 mg/dL (7-25) 01/24/18 08:50 Creatinine 0.5 mg/dL (0.6-1.2) L 01/24/18 08:50 Est GFR ( Amer) > 60.0 ml/min (>90) 01/24/18 08:50 Est GFR (Non-Af Amer) > 60.0 ml/min 01/24/18 08:50 BUN/Creatinine Ratio 20.0 01/24/18 08:50 Glucose 367 mg/dL (70-105) H 01/24/18 08:50 POC Glucose 198 MG/DL (70 - 105) H 01/30/18 16:34 Hemoglobin A1c % 11.8 % (4.0-6.0) H 01/22/18 18:05 Calcium 9.0 mg/dL (8.6-10.3) 01/24/18 08:50 Total Bilirubin 0.3 mg/dL (0.3-1.0) 01/24/18 08:50 AST 10 U/L (13-39) L 01/24/18 08:50 ALT 8 U/L (7-52) 01/24/18 08:50 Alkaline Phosphatase 71 U/L (34-104) 01/24/18 08:50 C-Reactive Protein < 0.2 mg/dL (0.0-0.9) 01/27/18 05:50 Total Protein 6.5 gm/dL (6.0-8.3) 01/24/18 08:50 Albumin 3.4 gm/dL (3.7-5.3) L 01/24/18 08:50 Globulin 3.1 gm/dL 01/24/18 08:50 Albumin/Globulin Ratio 1.1 (1.0-1.8) 01/24/18 08:50 Triglycerides 213 mg/dL (<150) H 01/22/18 18:05 Cholesterol 111 mg/dL (<200) 01/22/18 18:05 LDL Cholesterol Direct 50 mg/dL (75-193) L 01/22/18 18:05 HDL Cholesterol 38 mg/dL (23-92) 01/22/18 18:05 TSH 1.50 uIU/ml (0.34-5.60) 01/22/18 18:05 Urine Source CLEAN C 01/22/18 18:00 Urine Color YELLOW 01/22/18 18:00 Urine Clarity HAZY (CLEAR) 01/22/18 18:00 Urine pH 6.0 (4.6 - 8.0) 01/22/18 18:00 Ur Specific [place] 1.010 (1.005-1.030) 01/22/18 18:00 Urine Protein 30 mg/dL (NEGATIVE) H 01/22/18 18:00 Urine Glucose (UA) >=1000 mg/dL (NEGATIVE) H 01/22/18 18:00 Urine Ketones NEGATIVE mg/dL (NEGATIVE) 01/22/18 18:00 Urine Blood LARGE (NEGATIVE) H 01/22/18 18:00 Urine Nitrate NEGATIVE (NEGATIVE) 01/22/18 18:00 Urine Bilirubin NEGATIVE (NEGATIVE) 01/22/18 18:00 Urine Urobilinogen 0.2 E.U./dL (0.2 - 1.0) 01/22/18 18:00 Ur Leukocyte Esterase NEGATIVE (NEGATIVE) 01/22/18 18:00 Urine RBC 25-50 /hpf (0-5) H 01/22/18 18:00 Urine WBC 6-10 /hpf (0-5) H 01/22/18 18:00 Ur Epithelial Cells MODERATE /lpf (FEW) 01/22/18 18:00 Urine Bacteria NONE SEEN /hpf (NONE SEEN) 01/22/18 18:00 RPR NONREACTIVE (NONREACTIVE) 01/22/18 18:05 - Physical Exam Vitals and I&O: Vital Signs Temp 97.4 F 01/30/18 16:19 Pulse 72 01/30/18 16:19 Resp 18 01/30/18 16:19 BP 96/55 01/30/18 16:19 Pulse Ox 97 01/30/18 16:19 Intake & Output 01/29/18 01/30/18 01/30/18 18:59 06:59 18:59 Intake Total 1000 Balance 1000 Intake: Oral 1000 Other: # Voids 4 # Bowel Movements 1 Stool Characteristics Formed Formed Formed Active Medications: Current Medications Acetaminophen (Tylenol) 650 mg PO Q4HR PRN PRN Reason: Mild Pain / Temp above 100 Stop: 03/23/18 23:48 Last Admin: 01/29/18 11:59 Dose: 650 mg Al Hydrox/Mg Hydrox/Simethicone (Maalox) 30 ml PO Q4HR PRN PRN Reason: GI DISTRESS Stop: 03/23/18 23:48 Atorvastatin Calcium (Lipitor) 40 mg PO HS [facility] Stop: 03/24/18 20:59 Last Admin: 01/29/18 20:40 Dose: 40 mg Docusate Sodium (Colace) 200 mg PO BID [facility] Stop: 03/28/18 08:59 Last Admin: 01/30/18 08:26 Dose: 200 mg Insulin Aspart (Novolog Insulin Sliding Scale) 0 units SUBQ ACHS [facility]; Protocol Stop: 03/24/18 16:29 Last Admin: 01/30/18 12:11 Dose: 3 units Insulin Detemir (Levemir Insulin) 5 units SUBQ HS [facility] Stop: 03/25/18 20:59 Last Admin: 01/29/18 20:41 Dose: 5 units Lactobacillus Rhamnosus (Culturelle 15b) 1 each PO DAILY [facility] Stop: 03/26/18 08:59 Last Admin: 01/30/18 08:27 Dose: 1 each Levetiracetam (Keppra) 1,000 mg PO BID [facility] Stop: 03/24/18 08:59 Last Admin: 01/30/18 08:26 Dose: 1,000 mg [place] Carbonate (Eskalith) 300 mg PO BID [facility]; Protocol Stop: 03/24/18 16:59 Last Admin: 01/30/18 08:27 Dose: 300 mg Lorazepam (Ativan) 1 mg PO Q8H PRN; Protocol PRN Reason: Anxiety Stop: 03/23/18 23:39 Last Admin: 01/28/18 18:46 Dose: 1 mg Magnesium Hydroxide (Milk Of Magnesia) 30 ml PO HS PRN PRN Reason: Constipation Magnesium Oxide (Mag-Oxide) 400 mg PO DAILY [facility] Stop: 03/24/18 08:59 Last Admin: 01/30/18 08:27 Dose: 400 mg Mesalamine (Pentasa) 750 mg PO DAILY [facility] Stop: 03/26/18 08:59 Last Admin: 01/30/18 08:26 Dose: 750 mg Metformin HCl (Glucophage) 1,000 mg PO BIDWM [facility] Stop: 03/24/18 08:59 Last Admin: 01/30/18 08:26 Dose: 1,000 mg Miscellaneous (Probiotic Screen) 1 ea MC PRN PRN PRN Reason: PROTOCOL Stop: 03/26/18 08:44 Pantoprazole Sodium (Protonix) 40 mg PO QDAC [facility] Stop: 03/24/18 08:59 Last Admin: 01/30/18 16:37 Dose: Not Given Quetiapine Fumarate (Seroquel) 300 mg PO HS [facility] Stop: 03/29/18 20:59 Last Admin: 01/29/18 20:40 Dose: 300 mg Zolpidem Tartrate (Ambien) 5 mg PO HS PRN PRN Reason: Insomnia Stop: 03/23/18 23:48 Last Admin: 01/29/18 20:40 Dose: 5 mg General: Alert, Oriented x3, Cooperative, No acute distress HEENT: Atraumatic, PERRLA, EOMI Neck: Supple Cardiovascular: Regular rate Lungs: Clear to auscultation Assessment/Plan - Problem List Patient Problems: All Active Problems AGITATION AND DISRUPTIVE BEHAVIOR (Acute) - Assessment Assessment: 1. Hx of UC 2. Anxiety 3. Hematochezia -will obtain a stat CT of the abdomen/pelvis to assess for any presence of bowel obstruction or colonic obstruction -continue 5ASA -will follow Please call or page if any questions
[2018-01-30] MEDS: Maalox 30 mL Cup PO PRN (21:24)
[2018-01-30] MEDS: Insulin Detemir 100 units/mL 10mL Vial SUBQ SCH (21:44)
--- NOTE | 2018-01-30 23:59 | Progress Notes ---
DATE: 01/30/2018 PSYCHIATRIC PROGRESS NOTE SUBJECTIVE: Staff was spoken to. The patient is interviewed. Mood is noted to be irritable. Affect is constricted. Coping skills are noted to be still poor. The patient is extremely paranoid and is stating that people are accusing her of doing things behind her back and she states she does not want to be blamed. The patient is showing me her fingers and is telling me that the fingers are going in different directions and she has no clue about it. ASSESSMENT: The patient is still psychotic. PLAN: To continue the patient with the current medications. I encouraged the patient to verbalize the concerns rather than to act out. JOB# [id number]
[2018-01-31] MEDS: Pantoprazole 40 mg EC Tab PO SCH (06:29)
[2018-01-31] MEDS: INSULIN ASPART SLIDING SCALE 100 UNITS/ML UNIT SUBQ SCH ×4 (06:41→21:14)
[2018-01-31] MEDS: Mesalamine 250 mg ER Cap PO SCH (09:00)
--- NOTE | 2018-01-31 09:36 | Diagnostic Imaging Report ---
Exam: CT examination abdomen pelvis. HISTORY: Distended abdomen. Total DLP equals 523 CTDI equals 9.5 Findings: Multiple contiguous thin section of the abdomen pelvis obtained from lower thorax to pubic symphysis without the administration of oral or intravenous contrast material. No prior studies available comparison. The study demonstrates normal aeration of lung parenchyma the bases The liver and spleen intact. The kidneys demonstrate no evidence of obstructive uropathy or nephrolithiasis. Mild perinephric stranding appreciated mild inflammatory changes cannot be excluded. The visualized adrenal glands are normal. The pancreas is poorly seen. The gallbladder is intact. There is evidence for fecal impaction with distention of proximal small bowel loops is fluid and air suggestive of ileus. There is no evidence of ascitic fluid. The urinary bladder is distended. Small left inguinal hernia containing fat appreciated. There is no evidence of diverticular disease of diverticulitis. IMPRESSION: Fecal impaction Mild ileus.
[2018-01-31] MEDS: Lactobacillus Rhamnosus GG 15 Billion CFU CAP.SPRINK PO SCH (09:57)
--- NOTE | 2018-01-31 10:17 | GI Progress Note ---
Subjective - Review of Systems Service Date: 01/31/18 Events since last encounter: Patient abdomen a lot less distended, had a CT scan yesterday which basically showed fecal impaction Objective - Results Result Diagrams: 01/27/18 05:50 01/24/18 08:50 Recent Labs: Laboratory Last Values WBC 6.5 Th/cmm (4.8-10.8) 01/27/18 05:50 RBC 4.10 Mil/cmm (3.80-5.10) 01/27/18 05:50 Hgb 12.1 gm/dL (12-16) 01/27/18 05:50 Hct 36.1 % (41.0-60) L 01/27/18 05:50 MCV 88.0 fl (81-100) 01/27/18 05:50 MCH 29.4 pg (27.0-31.0) 01/27/18 05:50 MCHC Differential 33.5 pg (28.0-36.0) 01/27/18 05:50 RDW 12.8 % (11.5-20.0) 01/27/18 05:50 Plt Count 247 Th/cmm (150-400) 01/27/18 05:50 MPV 8.1 fl 01/27/18 05:50 Neutrophils % 46.6 % (40.0-80.0) 01/27/18 05:50 Lymphocytes % 40.1 % (20.0-50.0) 01/27/18 05:50 Monocytes % 8.4 % (2.0-10.0) 01/27/18 05:50 Eosinophils % 3.9 % (0.0-5.0) 01/27/18 05:50 Basophils % 1.0 % (0.0-2.0) 01/27/18 05:50 ESR 11 mm/hr (0-30) 01/27/18 05:50 Sodium 131 mEq/L (136-145) L 01/24/18 08:50 Potassium 4.2 mEq/L (3.5-5.1) 01/24/18 08:50 Chloride 102 mEq/L (98-107) 01/24/18 08:50 Carbon Dioxide 23.3 mEq/L (21.0-31.0) 01/24/18 08:50 Anion Gap 9.9 (7.0-16.0) 01/24/18 08:50 BUN 10 mg/dL (7-25) 01/24/18 08:50 Creatinine 0.5 mg/dL (0.6-1.2) L 01/24/18 08:50 Est GFR ( Amer) > 60.0 ml/min (>90) 01/24/18 08:50 Est GFR (Non-Af Amer) > 60.0 ml/min 01/24/18 08:50 BUN/Creatinine Ratio 20.0 01/24/18 08:50 Glucose 367 mg/dL (70-105) H 01/24/18 08:50 POC Glucose 134 MG/DL (70 - 105) H 01/31/18 06:35 Hemoglobin A1c % 11.8 % (4.0-6.0) H 01/22/18 18:05 Calcium 9.0 mg/dL (8.6-10.3) 01/24/18 08:50 Total Bilirubin 0.3 mg/dL (0.3-1.0) 01/24/18 08:50 AST 10 U/L (13-39) L 01/24/18 08:50 ALT 8 U/L (7-52) 01/24/18 08:50 Alkaline Phosphatase 71 U/L (34-104) 01/24/18 08:50 C-Reactive Protein < 0.2 mg/dL (0.0-0.9) 01/27/18 05:50 Total Protein 6.5 gm/dL (6.0-8.3) 01/24/18 08:50 Albumin 3.4 gm/dL (3.7-5.3) L 01/24/18 08:50 Globulin 3.1 gm/dL 01/24/18 08:50 Albumin/Globulin Ratio 1.1 (1.0-1.8) 01/24/18 08:50 Triglycerides 213 mg/dL (<150) H 01/22/18 18:05 Cholesterol 111 mg/dL (<200) 01/22/18 18:05 LDL Cholesterol Direct 50 mg/dL (75-193) L 01/22/18 18:05 HDL Cholesterol 38 mg/dL (23-92) 01/22/18 18:05 TSH 1.50 uIU/ml (0.34-5.60) 01/22/18 18:05 Urine Source CLEAN C 01/22/18 18:00 Urine Color YELLOW 01/22/18 18:00 Urine Clarity HAZY (CLEAR) 01/22/18 18:00 Urine pH 6.0 (4.6 - 8.0) 01/22/18 18:00 Ur Specific [place] 1.010 (1.005-1.030) 01/22/18 18:00 Urine Protein 30 mg/dL (NEGATIVE) H 01/22/18 18:00 Urine Glucose (UA) >=1000 mg/dL (NEGATIVE) H 01/22/18 18:00 Urine Ketones NEGATIVE mg/dL (NEGATIVE) 01/22/18 18:00 Urine Blood LARGE (NEGATIVE) H 01/22/18 18:00 Urine Nitrate NEGATIVE (NEGATIVE) 01/22/18 18:00 Urine Bilirubin NEGATIVE (NEGATIVE) 01/22/18 18:00 Urine Urobilinogen 0.2 E.U./dL (0.2 - 1.0) 01/22/18 18:00 Ur Leukocyte Esterase NEGATIVE (NEGATIVE) 01/22/18 18:00 Urine RBC 25-50 /hpf (0-5) H 01/22/18 18:00 Urine WBC 6-10 /hpf (0-5) H 01/22/18 18:00 Ur Epithelial Cells MODERATE /lpf (FEW) 01/22/18 18:00 Urine Bacteria NONE SEEN /hpf (NONE SEEN) 01/22/18 18:00 RPR NONREACTIVE (NONREACTIVE) 01/22/18 18:05 - Physical Exam Vitals and I&O: Vital Signs Temp 97.6 F 01/30/18 20:49 Pulse 68 01/30/18 20:49 Resp 20 01/30/18 20:49 BP 116/76 01/30/18 20:49 Pulse Ox 98 01/30/18 20:49 Intake & Output 01/30/18 01/31/18 01/31/18 18:59 06:59 18:59 Intake Total 900 240 Balance 900 240 Intake: Oral 900 240 Other: # Voids 4 1 # Bowel Movements 1 Stool Characteristics Formed Active Medications: Current Medications Acetaminophen (Tylenol) 650 mg PO Q4HR PRN PRN Reason: Mild Pain / Temp above 100 Stop: 03/23/18 23:48 Last Admin: 01/29/18 11:59 Dose: 650 mg Al Hydrox/Mg Hydrox/Simethicone (Maalox) 30 ml PO Q4HR PRN PRN Reason: GI DISTRESS Stop: 03/23/18 23:48 Last Admin: 01/30/18 21:24 Dose: 30 ml Atorvastatin Calcium (Lipitor) 40 mg PO HS [facility] Stop: 03/24/18 20:59 Last Admin: 01/30/18 21:25 Dose: 40 mg Docusate Sodium (Colace) 200 mg PO BID [facility] Stop: 03/28/18 08:59 Last Admin: 01/31/18 09:57 Dose: 200 mg Insulin Aspart (Novolog Insulin Sliding Scale) 0 units SUBQ ACHS [facility]; Protocol Stop: 03/24/18 16:29 Last Admin: 01/31/18 06:41 Dose: Not Given Insulin Detemir (Levemir Insulin) 5 units SUBQ HS [facility] Stop: 03/25/18 20:59 Last Admin: 01/30/18 21:44 Dose: 5 units Lactobacillus Rhamnosus (Culturelle 15b) 1 each PO DAILY [facility] Stop: 03/26/18 08:59 Last Admin: 01/31/18 09:57 Dose: 1 each Levetiracetam (Keppra) 1,000 mg PO BID [facility] Stop: 03/24/18 08:59 Last Admin: 01/31/18 09:58 Dose: 1,000 mg [place] Carbonate (Eskalith) 300 mg PO BID [facility]; Protocol Stop: 03/24/18 16:59 Last Admin: 01/31/18 09:57 Dose: 300 mg Lorazepam (Ativan) 1 mg PO Q8H PRN; Protocol PRN Reason: Anxiety Stop: 03/23/18 23:39 Last Admin: 01/28/18 18:46 Dose: 1 mg Magnesium Oxide (Mag-Oxide) 400 mg PO DAILY [facility] Stop: 03/24/18 08:59 Last Admin: 01/31/18 09:57 Dose: 400 mg Mesalamine (Pentasa) 750 mg PO DAILY [facility] Stop: 03/26/18 08:59 Last Admin: 01/30/18 08:26 Dose: 750 mg Metformin HCl (Glucophage) 1,000 mg PO BIDWM [facility] Stop: 03/24/18 08:59 Last Admin: 01/31/18 09:57 Dose: 1,000 mg Miscellaneous (Probiotic Screen) 1 ea [facility] PRN PRN PRN Reason: PROTOCOL Stop: 03/26/18 08:44 Pantoprazole Sodium (Protonix) 40 mg PO QDAC [facility] Stop: 03/24/18 08:59 Last Admin: 01/31/18 06:29 Dose: 40 mg Quetiapine Fumarate (Seroquel) 300 mg PO HS [facility] Stop: 03/29/18 20:59 Last Admin: 01/30/18 21:25 Dose: 300 mg Zolpidem Tartrate (Ambien) 5 mg PO HS PRN PRN Reason: Insomnia Stop: 03/23/18 23:48 Last Admin: 01/30/18 21:25 Dose: 5 mg General: Alert, Cooperative, No acute distress HEENT: Atraumatic, PERRLA, EOMI Neck: Supple Cardiovascular: Regular rate Lungs: Clear to auscultation Assessment/Plan - Problem List Patient Problems: All Active Problems AGITATION AND DISRUPTIVE BEHAVIOR (Acute) - Assessment Assessment: 1. Hx of UC 2. Anxiety 3. Hematochezia -give patient a tap water enema -Miralax 17gm X2 -stool softeners -continue 5ASA -will follow Please call or page if any questions
[2018-01-31] MEDS: POLYETHYLENE GLYCOL 3350 17 GM PACK PO SCH ×2 (11:30→16:44)
[2018-01-31] MEDS: Insulin Detemir 100 units/mL 10mL Vial SUBQ SCH (21:14)
--- NOTE | 2018-01-31 22:59 | Progress Notes ---
DATE: 01/31/2018 SUBJECTIVE: The patient was seen in her room. The patient appears to be guarded, but calm. The patient has some ongoing delusion. Denies any suicidal or homicidal. The patient is in no acute distress. The patient had CT scan of the abdomen done yesterday due to distention. Otherwise, the patient is in no acute distress. OBJECTIVE: VITAL SIGNS: Temperature 97.6, heart rate 68, blood pressure 116/76, respirations of 20, and 98% on room air. HEENT: Head is atraumatic and normocephalic. Eyes: Bilateral conjunctivae are clear. Bilateral pupils are equally round and reactive. NECK: Supple. No JVD. CARDIOVASCULAR: S1 and S2, without murmur. PULMONARY: Clear to auscultation. GASTROINTESTINAL: Soft and nontender without guarding. Positive bowel sounds. MUSCULOSKELETAL: No clubbing. No cyanosis noted. ASSESSMENT: 1. Bipolar disorder. 2. Diabetes. 3. Seizure. 4. History of transient ischemic attack. 5. Constipation. PLAN: We will continue the patient in inpatient Psychiatric Unit. We will follow up with psychiatrist to monitor the patient's condition and behavior. Per GI recommendation to give the patient a tap water enema and stool softeners. Treatment plans were discussed with the patient's nurse. Treatment plans were discussed with Dr. Mandujano. JOB# [id number]
--- NOTE | 2018-02-01 01:33 | Progress Notes ---
DATE: 01/31/2018 PSYCHIATRIC PROGRESS NOTE SUBJECTIVE: Staff was spoken to. The patient is interviewed. Mood is noted to be depressed. Affect is constricted. The patient is stating that she is and the staff is reporting that it is mainly because of the fecal impaction and constipation. The patient is reporting that she had a bowel movement and now she feels alright. ASSESSMENT: The patient is still very paranoid and has no insight into her illness. PLAN: To continue the patient with supportive therapy. I encouraged the patient to verbalize the concerns rather than to act out. The patient is currently on Seroquel 300 mg at bedtime and has been able to tolerate the medications. No side effects to the medications are noted. In view of the acute psychosis, it is decided to increase the dose of the Seroquel to 400 mg and follow the patient with supportive therapy. JOB# [id number]
[2018-02-01] MEDS: Maalox 30 mL Cup PO PRN (05:49)
[2018-02-01] MEDS: INSULIN ASPART SLIDING SCALE 100 UNITS/ML UNIT SUBQ SCH ×4 (06:43→20:59)
[2018-02-01] MEDS: Pantoprazole 40 mg EC Tab PO SCH (06:44)
[2018-02-01] MEDS: Lactobacillus Rhamnosus GG 15 Billion CFU CAP.SPRINK PO SCH (09:49)
[2018-02-01] MEDS: Mesalamine 250 mg ER Cap PO SCH (09:51)
--- NOTE | 2018-02-01 11:34 | General Progress Note ---
Subjective - Review of Systems Events since last encounter: patient paranoid depressed mood no sings of pain Subjective: patient is agitated, reports no pain Objective - Results Result Diagrams: 01/27/18 05:50 01/24/18 08:50 Recent Labs: Laboratory Last Values WBC 6.5 Th/cmm (4.8-10.8) 01/27/18 05:50 RBC 4.10 Mil/cmm (3.80-5.10) 01/27/18 05:50 Hgb 12.1 gm/dL (12-16) 01/27/18 05:50 Hct 36.1 % (41.0-60) L 01/27/18 05:50 MCV 88.0 fl (81-100) 01/27/18 05:50 MCH 29.4 pg (27.0-31.0) 01/27/18 05:50 MCHC Differential 33.5 pg (28.0-36.0) 01/27/18 05:50 RDW 12.8 % (11.5-20.0) 01/27/18 05:50 Plt Count 247 Th/cmm (150-400) 01/27/18 05:50 MPV 8.1 fl 01/27/18 05:50 Neutrophils % 46.6 % (40.0-80.0) 01/27/18 05:50 Lymphocytes % 40.1 % (20.0-50.0) 01/27/18 05:50 Monocytes % 8.4 % (2.0-10.0) 01/27/18 05:50 Eosinophils % 3.9 % (0.0-5.0) 01/27/18 05:50 Basophils % 1.0 % (0.0-2.0) 01/27/18 05:50 ESR 11 mm/hr (0-30) 01/27/18 05:50 Sodium 131 mEq/L (136-145) L 01/24/18 08:50 Potassium 4.2 mEq/L (3.5-5.1) 01/24/18 08:50 Chloride 102 mEq/L (98-107) 01/24/18 08:50 Carbon Dioxide 23.3 mEq/L (21.0-31.0) 01/24/18 08:50 Anion Gap 9.9 (7.0-16.0) 01/24/18 08:50 BUN 10 mg/dL (7-25) 01/24/18 08:50 Creatinine 0.5 mg/dL (0.6-1.2) L 01/24/18 08:50 Est GFR ( Amer) > 60.0 ml/min (>90) 01/24/18 08:50 Est GFR (Non-Af Amer) > 60.0 ml/min 01/24/18 08:50 BUN/Creatinine Ratio 20.0 01/24/18 08:50 Glucose 367 mg/dL (70-105) H 01/24/18 08:50 POC Glucose 121 MG/DL (70 - 105) H 02/01/18 06:30 Hemoglobin A1c % 11.8 % (4.0-6.0) H 01/22/18 18:05 Calcium 9.0 mg/dL (8.6-10.3) 01/24/18 08:50 Total Bilirubin 0.3 mg/dL (0.3-1.0) 01/24/18 08:50 AST 10 U/L (13-39) L 01/24/18 08:50 ALT 8 U/L (7-52) 01/24/18 08:50 Alkaline Phosphatase 71 U/L (34-104) 01/24/18 08:50 C-Reactive Protein < 0.2 mg/dL (0.0-0.9) 01/27/18 05:50 Total Protein 6.5 gm/dL (6.0-8.3) 01/24/18 08:50 Albumin 3.4 gm/dL (3.7-5.3) L 01/24/18 08:50 Globulin 3.1 gm/dL 01/24/18 08:50 Albumin/Globulin Ratio 1.1 (1.0-1.8) 01/24/18 08:50 Triglycerides 213 mg/dL (<150) H 01/22/18 18:05 Cholesterol 111 mg/dL (<200) 01/22/18 18:05 LDL Cholesterol Direct 50 mg/dL (75-193) L 01/22/18 18:05 HDL Cholesterol 38 mg/dL (23-92) 01/22/18 18:05 TSH 1.50 uIU/ml (0.34-5.60) 01/22/18 18:05 Urine Source CLEAN C 01/22/18 18:00 Urine Color YELLOW 01/22/18 18:00 Urine Clarity HAZY (CLEAR) 01/22/18 18:00 Urine pH 6.0 (4.6 - 8.0) 01/22/18 18:00 Ur Specific [place] 1.010 (1.005-1.030) 01/22/18 18:00 Urine Protein 30 mg/dL (NEGATIVE) H 01/22/18 18:00 Urine Glucose (UA) >=1000 mg/dL (NEGATIVE) H 01/22/18 18:00 Urine Ketones NEGATIVE mg/dL (NEGATIVE) 01/22/18 18:00 Urine Blood LARGE (NEGATIVE) H 01/22/18 18:00 Urine Nitrate NEGATIVE (NEGATIVE) 01/22/18 18:00 Urine Bilirubin NEGATIVE (NEGATIVE) 01/22/18 18:00 Urine Urobilinogen 0.2 E.U./dL (0.2 - 1.0) 01/22/18 18:00 Ur Leukocyte Esterase NEGATIVE (NEGATIVE) 01/22/18 18:00 Urine RBC 25-50 /hpf (0-5) H 01/22/18 18:00 Urine WBC 6-10 /hpf (0-5) H 01/22/18 18:00 Ur Epithelial Cells MODERATE /lpf (FEW) 01/22/18 18:00 Urine Bacteria NONE SEEN /hpf (NONE SEEN) 01/22/18 18:00 RPR NONREACTIVE (NONREACTIVE) 01/22/18 18:05 - Physical Exam Vitals and I&O: Vital Signs Temp 98.2 F 02/01/18 06:55 Pulse 66 02/01/18 06:55 Resp 20 02/01/18 06:55 BP 104/70 02/01/18 06:55 Pulse Ox 98 02/01/18 06:55 Intake & Output 01/31/18 02/01/18 02/01/18 18:59 06:59 18:59 Intake Total 2400 120 Balance 2400 120 Intake: Oral 2400 120 Other: # Voids 5 3 # Bowel Movements 0 Active Medications: Current Medications Acetaminophen (Tylenol) 650 mg PO Q4HR PRN PRN Reason: Mild Pain / Temp above 100 Stop: 03/23/18 23:48 Last Admin: 01/29/18 11:59 Dose: 650 mg Al Hydrox/Mg Hydrox/Simethicone (Maalox) 30 ml PO Q4HR PRN PRN Reason: GI DISTRESS Stop: 03/23/18 23:48 Last Admin: 02/01/18 05:49 Dose: 30 ml Atorvastatin Calcium (Lipitor) 40 mg PO HS [facility] Stop: 03/24/18 20:59 Last Admin: 01/31/18 21:13 Dose: 40 mg Docusate Sodium (Colace) 200 mg PO BID [facility] Stop: 03/28/18 08:59 Last Admin: 02/01/18 09:49 Dose: 200 mg Insulin Aspart (Novolog Insulin Sliding Scale) 0 units SUBQ ACHS [facility]; Protocol Stop: 03/24/18 16:29 Last Admin: 02/01/18 06:43 Dose: Not Given Insulin Detemir (Levemir Insulin) 5 units SUBQ HS [facility] Stop: 03/25/18 20:59 Last Admin: 01/31/18 21:14 Dose: 5 units Lactobacillus Rhamnosus (Culturelle 15b) 1 each PO DAILY [facility] Stop: 03/26/18 08:59 Last Admin: 02/01/18 09:49 Dose: 1 each Levetiracetam (Keppra) 1,000 mg PO BID [facility] Stop: 03/24/18 08:59 Last Admin: 02/01/18 09:50 Dose: 1,000 mg [place] Carbonate (Eskalith) 300 mg PO BID [facility]; Protocol Stop: 03/24/18 16:59 Last Admin: 02/01/18 09:50 Dose: 300 mg Lorazepam (Ativan) 1 mg PO Q8H PRN; Protocol PRN Reason: Anxiety Stop: 03/23/18 23:39 Last Admin: 01/31/18 16:44 Dose: 1 mg Magnesium Oxide (Mag-Oxide) 400 mg PO DAILY [facility] Stop: 03/24/18 08:59 Last Admin: 02/01/18 09:51 Dose: 400 mg Mesalamine (Pentasa) 750 mg PO DAILY [facility] Stop: 03/26/18 08:59 Last Admin: 02/01/18 09:51 Dose: 750 mg Metformin HCl (Glucophage) 1,000 mg PO BIDWM [facility] Stop: 03/24/18 08:59 Last Admin: 02/01/18 09:00 Dose: 1,000 mg Miscellaneous (Probiotic Screen) 1 ea [facility] PRN PRN PRN Reason: PROTOCOL Stop: 03/26/18 08:44 Pantoprazole Sodium (Protonix) 40 mg PO QDAC [facility] Stop: 03/24/18 08:59 Last Admin: 02/01/18 06:44 Dose: 40 mg Quetiapine Fumarate (Seroquel) 400 mg PO HS [facility] Stop: 04/02/18 20:59 Zolpidem Tartrate (Ambien) 5 mg PO HS PRN PRN Reason: Insomnia Stop: 03/23/18 23:48 Last Admin: 01/30/18 21:25 Dose: 5 mg General: Alert, Cooperative, No acute distress HEENT: Atraumatic, PERRLA, EOMI Neck: Supple Cardiovascular: Regular rate Lungs: Clear to auscultation Assessment/Plan - Problem List Patient Problems: All Active Problems AGITATION AND DISRUPTIVE BEHAVIOR (Acute) - Assessment Assessment: psychotic h/o UC anxiety hematochezia - Plan Plan: cpm will monitor Nutritional Asmnt/Malnutr-PDOC - Dietary Evaluation Malnutrition Findings (Please click <Entered> for more info): Nutritional Asmnt/Malnutrition Start: 01/23/18 15: 14 Text: Status: Complete Freq: Protocol: Document 01/23/18 15:14 [email or web address] (Rec: 01/23/18 15:28 [email or web address]) Nutritional Asmnt/Malnutrition Patient General Information Nutritional Screening High Risk Consult Diagnosis psychosis NOS Pertinent Medical Hx/Surgical Hx DM, seizures, ulverative colitis, 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 Pt seen lying in bed at time of visit, awake and alert. Pt reported appetite fine. Per nurse, pt consumed almost the lunch tray. Pt understands [facility] diet and asked for sugar free food. Current Diet Order/ Nutrition Support [facility] 60gm Pertinent Medications novolog, levemir, levaquin, glucophage, protonix, seroquel Pertinent Labs 01/22 Na 131, glucose 288, POC 190-303, A1c 11.8, alb 3.6 Nutritional Hx/Data Height 1.63 m Height (Calculated Centimeters) 162.6 Current Weight (lbs) 63.503 kg Weight (Calculated Kilograms) 63.5 Weight (Calculated Grams) 60799.9 [place] Body Weight 120 Body Mass Index (BMI) 24.0 Weight Status Approriate GI Symptoms GI Symptoms None Last BM not indicated Difficult in: None Skin Integrity/Comment: intact Current %PO Good (75-100%) Estimated Nutritional Goals BEE in Kcals: Using Current wt Calories/Kcals/Kg 25-30 Kcals Calculated 8669-4897 Protein: Using Current wt Protein g/k-1.2 Protein Calculated 64-77 Fluid: ml 1600-1920ml (1ml/kcal) Nutritional Problem 1. Problem Problem altered nutrition related labs Etiology hx of DM Signs/Symptoms: glucose 288, POC 190-303, A1c 11.8 Malnutrition Alert Is there a minimum of two criteria No selected? Query Text:Check all the applicable criteria. A minimum of two criteria are recommended for diagnosis of either severe or non-severe malnutrition. Malnutrition Related to Morbid Obesity Malnutrition related to morbid obesity No Intervention/Recommendation Comments 1. Continue with [facility] diet as ordered. Diet preference updated. 2. Monitor PO intake, wt, labs and skin integrity 3. F/U as moderate risk in 3-5 days, 01/26-01/28 Expected Outcomes/Goals Expected Outcomes/Goals 1. PO intake to meet at least 75% of nutritional needs. 2. Wt stability, skin to remain intact, labs to approach WNL.
--- NOTE | 2018-02-01 12:24 | GI Progress Note ---
Subjective - Review of Systems Service Date: 02/01/18 Subjective: Patient tearful which is usual, but staff noticed her abdomen was larger, and having more difficulty using the restroom Objective - Results Result Diagrams: 01/27/18 05:50 01/24/18 08:50 Recent Labs: Laboratory Last Values WBC 6.5 Th/cmm (4.8-10.8) 01/27/18 05:50 RBC 4.10 Mil/cmm (3.80-5.10) 01/27/18 05:50 Hgb 12.1 gm/dL (12-16) 01/27/18 05:50 Hct 36.1 % (41.0-60) L 01/27/18 05:50 MCV 88.0 fl (81-100) 01/27/18 05:50 MCH 29.4 pg (27.0-31.0) 01/27/18 05:50 MCHC Differential 33.5 pg (28.0-36.0) 01/27/18 05:50 RDW 12.8 % (11.5-20.0) 01/27/18 05:50 Plt Count 247 Th/cmm (150-400) 01/27/18 05:50 MPV 8.1 fl 01/27/18 05:50 Neutrophils % 46.6 % (40.0-80.0) 01/27/18 05:50 Lymphocytes % 40.1 % (20.0-50.0) 01/27/18 05:50 Monocytes % 8.4 % (2.0-10.0) 01/27/18 05:50 Eosinophils % 3.9 % (0.0-5.0) 01/27/18 05:50 Basophils % 1.0 % (0.0-2.0) 01/27/18 05:50 ESR 11 mm/hr (0-30) 01/27/18 05:50 Sodium 131 mEq/L (136-145) L 01/24/18 08:50 Potassium 4.2 mEq/L (3.5-5.1) 01/24/18 08:50 Chloride 102 mEq/L (98-107) 01/24/18 08:50 Carbon Dioxide 23.3 mEq/L (21.0-31.0) 01/24/18 08:50 Anion Gap 9.9 (7.0-16.0) 01/24/18 08:50 BUN 10 mg/dL (7-25) 01/24/18 08:50 Creatinine 0.5 mg/dL (0.6-1.2) L 01/24/18 08:50 Est GFR ( Amer) > 60.0 ml/min (>90) 01/24/18 08:50 Est GFR (Non-Af Amer) > 60.0 ml/min 01/24/18 08:50 BUN/Creatinine Ratio 20.0 01/24/18 08:50 Glucose 367 mg/dL (70-105) H 01/24/18 08:50 POC Glucose 230 MG/DL (70 - 105) H 02/01/18 11:48 Hemoglobin A1c % 11.8 % (4.0-6.0) H 01/22/18 18:05 Calcium 9.0 mg/dL (8.6-10.3) 01/24/18 08:50 Total Bilirubin 0.3 mg/dL (0.3-1.0) 01/24/18 08:50 AST 10 U/L (13-39) L 01/24/18 08:50 ALT 8 U/L (7-52) 01/24/18 08:50 Alkaline Phosphatase 71 U/L (34-104) 01/24/18 08:50 C-Reactive Protein < 0.2 mg/dL (0.0-0.9) 01/27/18 05:50 Total Protein 6.5 gm/dL (6.0-8.3) 01/24/18 08:50 Albumin 3.4 gm/dL (3.7-5.3) L 01/24/18 08:50 Globulin 3.1 gm/dL 01/24/18 08:50 Albumin/Globulin Ratio 1.1 (1.0-1.8) 01/24/18 08:50 Triglycerides 213 mg/dL (<150) H 01/22/18 18:05 Cholesterol 111 mg/dL (<200) 01/22/18 18:05 LDL Cholesterol Direct 50 mg/dL (75-193) L 01/22/18 18:05 HDL Cholesterol 38 mg/dL (23-92) 01/22/18 18:05 TSH 1.50 uIU/ml (0.34-5.60) 01/22/18 18:05 Urine Source CLEAN C 01/22/18 18:00 Urine Color YELLOW 01/22/18 18:00 Urine Clarity HAZY (CLEAR) 01/22/18 18:00 Urine pH 6.0 (4.6 - 8.0) 01/22/18 18:00 Ur Specific [place] 1.010 (1.005-1.030) 01/22/18 18:00 Urine Protein 30 mg/dL (NEGATIVE) H 01/22/18 18:00 Urine Glucose (UA) >=1000 mg/dL (NEGATIVE) H 01/22/18 18:00 Urine Ketones NEGATIVE mg/dL (NEGATIVE) 01/22/18 18:00 Urine Blood LARGE (NEGATIVE) H 01/22/18 18:00 Urine Nitrate NEGATIVE (NEGATIVE) 01/22/18 18:00 Urine Bilirubin NEGATIVE (NEGATIVE) 01/22/18 18:00 Urine Urobilinogen 0.2 E.U./dL (0.2 - 1.0) 01/22/18 18:00 Ur Leukocyte Esterase NEGATIVE (NEGATIVE) 01/22/18 18:00 Urine RBC 25-50 /hpf (0-5) H 01/22/18 18:00 Urine WBC 6-10 /hpf (0-5) H 01/22/18 18:00 Ur Epithelial Cells MODERATE /lpf (FEW) 01/22/18 18:00 Urine Bacteria NONE SEEN /hpf (NONE SEEN) 01/22/18 18:00 RPR NONREACTIVE (NONREACTIVE) 01/22/18 18:05 - Physical Exam Vitals and I&O: Vital Signs Temp 98.2 F 02/01/18 06:55 Pulse 66 02/01/18 06:55 Resp 20 02/01/18 06:55 BP 104/70 02/01/18 06:55 Pulse Ox 98 02/01/18 06:55 Intake & Output 01/31/18 02/01/18 02/01/18 18:59 06:59 18:59 Intake Total 2400 120 Balance 2400 120 Intake: Oral 2400 120 Other: # Voids 5 3 # Bowel Movements 0 Active Medications: Current Medications Acetaminophen (Tylenol) 650 mg PO Q4HR PRN PRN Reason: Mild Pain / Temp above 100 Stop: 03/23/18 23:48 Last Admin: 01/29/18 11:59 Dose: 650 mg Al Hydrox/Mg Hydrox/Simethicone (Maalox) 30 ml PO Q4HR PRN PRN Reason: GI DISTRESS Stop: 03/23/18 23:48 Last Admin: 02/01/18 05:49 Dose: 30 ml Atorvastatin Calcium (Lipitor) 40 mg PO HS [facility] Stop: 03/24/18 20:59 Last Admin: 01/31/18 21:13 Dose: 40 mg Docusate Sodium (Colace) 200 mg PO BID [facility] Stop: 03/28/18 08:59 Last Admin: 02/01/18 09:49 Dose: 200 mg Insulin Aspart (Novolog Insulin Sliding Scale) 0 units SUBQ ACHS [facility]; Protocol Stop: 03/24/18 16:29 Last Admin: 02/01/18 12:17 Dose: 5 units Insulin Detemir (Levemir Insulin) 5 units SUBQ HS [facility] Stop: 03/25/18 20:59 Last Admin: 01/31/18 21:14 Dose: 5 units Lactobacillus Rhamnosus (Culturelle 15b) 1 each PO DAILY [facility] Stop: 03/26/18 08:59 Last Admin: 02/01/18 09:49 Dose: 1 each Levetiracetam (Keppra) 1,000 mg PO BID [facility] Stop: 03/24/18 08:59 Last Admin: 02/01/18 09:50 Dose: 1,000 mg [place] Carbonate (Eskalith) 300 mg PO BID [facility]; Protocol Stop: 03/24/18 16:59 Last Admin: 02/01/18 09:50 Dose: 300 mg Lorazepam (Ativan) 1 mg PO Q8H PRN; Protocol PRN Reason: Anxiety Stop: 03/23/18 23:39 Last Admin: 01/31/18 16:44 Dose: 1 mg Magnesium Oxide (Mag-Oxide) 400 mg PO DAILY [facility] Stop: 03/24/18 08:59 Last Admin: 02/01/18 09:51 Dose: 400 mg Mesalamine (Pentasa) 750 mg PO DAILY [facility] Stop: 03/26/18 08:59 Last Admin: 02/01/18 09:51 Dose: 750 mg Metformin HCl (Glucophage) 1,000 mg PO BIDWM [facility] Stop: 03/24/18 08:59 Last Admin: 02/01/18 09:00 Dose: 1,000 mg Miscellaneous (Probiotic Screen) 1 ea [facility] PRN PRN PRN Reason: PROTOCOL Stop: 03/26/18 08:44 Pantoprazole Sodium (Protonix) 40 mg PO QDAC [facility] Stop: 03/24/18 08:59 Last Admin: 02/01/18 06:44 Dose: 40 mg Quetiapine Fumarate (Seroquel) 400 mg PO HS [facility] Stop: 04/02/18 20:59 Zolpidem Tartrate (Ambien) 5 mg PO HS PRN PRN Reason: Insomnia Stop: 03/23/18 23:48 Last Admin: 01/30/18 21:25 Dose: 5 mg General: Alert, Cooperative, No acute distress HEENT: Atraumatic, PERRLA, EOMI Neck: Supple Cardiovascular: Regular rate Lungs: Clear to auscultation Assessment/Plan - Problem List Patient Problems: All Active Problems AGITATION AND DISRUPTIVE BEHAVIOR (Acute) - Assessment Assessment: 1. Hx of UC 2. Anxiety 3. Hematochezia -Miralax 17gm daily as needed -stool softeners -continue 5ASA -Gi will sign off, please call or page if any questions
--- NOTE | 2018-02-01 13:20 | Progress Notes ---
DATE: 02/01/2018 SUBJECTIVE: Staff was spoken to. The patient is interviewed. Mood is noted to be irritable. Affect is constricted. The patient continues to be depressed and psychotic. Insight and judgment at this time are noted to be still impaired. Impulse control seems to be limited. The patient in view of the fall has been placed on the Seroquel, which is being given at 400 mg at bedtime, lithium is being given at 300 mg twice a day. The patient has been able to tolerate the medications. No side effects to the medications are noted. ASSESSMENT: The patient is still grossly psychotic and accusing everyone is doing things behind her back. PLAN: Plan to continue the patient with the current medications. I encouraged the patient to verbalize the concerns rather than to act out. JOB# [id number]
[2018-02-01] MEDS: Insulin Detemir 100 units/mL 10mL Vial SUBQ SCH (21:34)
[2018-02-02] MEDS: Pantoprazole 40 mg EC Tab PO SCH (06:34)
[2018-02-02] MEDS: INSULIN ASPART SLIDING SCALE 100 UNITS/ML UNIT SUBQ SCH ×4 (06:35→20:28)
[2018-02-02] MEDS: Lactobacillus Rhamnosus GG 15 Billion CFU CAP.SPRINK PO SCH (09:53)
[2018-02-02] MEDS: Mesalamine 250 mg ER Cap PO SCH (09:56)
[2018-02-02] MEDS ORDERED: Fleet Enema 135 mL RC ONE (13:36)
[2018-02-02] MEDS: Insulin Detemir 100 units/mL 10mL Vial SUBQ SCH (20:26)
--- NOTE | 2018-02-02 20:47 | Progress Notes ---
DATE: 02/02/2018 SUBJECTIVE: Staff was spoken to. The patient is interviewed. Mood is noted to be irritable. Affect is constricted. The patient's insight and judgment at this time are noted to be still impaired. Coping skills are noted to be poor. The patient has been having difficult time to cope with the stress. No side effects to the medications are noted. Continues to be paranoid and has been blaming the staff, accusing the staff of blaming her. ASSESSMENT: The patient is still grossly psychotic. PLAN: To continue the patient with the supportive therapy and current medications and followup. JOB# [id number]
[2018-02-03] MEDS: INSULIN ASPART SLIDING SCALE 100 UNITS/ML UNIT SUBQ SCH ×2 (06:33→11:41)
[2018-02-03] MEDS: Pantoprazole 40 mg EC Tab PO SCH (06:36)
[2018-02-03] MEDS: Lactobacillus Rhamnosus GG 15 Billion CFU CAP.SPRINK PO SCH (08:52)
[2018-02-03] MEDS: Mesalamine 250 mg ER Cap PO SCH (09:01)
--- NOTE | 2018-02-03 20:59 | Progress Notes ---
DATE: 02/03/2018 SUBJECTIVE: Staff was spoken to. The patient is interviewed. Mood is noted to be irritable. Affect is constricted. The patient has paranoia, but denies any command hallucinations. Insight and judgment at this time are noted to be improving. Impulse control seems to be fair. No side effects to the medications are noted. ASSESSMENT: The patient's psychosis is resolving. PLAN: To continue the patient with the supportive therapy and work with the spring encaser in regards to finding a placement for this patient. JOB# [id number]
== END 2018-02-03 14:04 | DRG 885 ==
LOC: ER 17:27 → GERO2 22:05 → GERO 01-24 09:43
PROVIDERS: ADMIT Psychiatry & Neurology Psychiatry; ATTEND Psychiatry & Neurology Psychiatry
DX: F31.64 Bipolar disorder, current episode mixed, severe, with psychotic features (principal); N39.0 Urinary tract infection, site not specified; K92.1 Melena; F29 Unspecified psychosis not due to a substance or known physiological condition; E11.9 Type 2 diabetes mellitus without complications; F17.210 Nicotine dependence, cigarettes, uncomplicated; G40.909 Epilepsy, unspecified, not intractable, without status epilepticus; F41.9 Anxiety disorder, unspecified; K56.41 Fecal impaction; Z86.73 Personal history of transient ischemic attack (TIA), and cerebral infarction without residual deficits
CPT/HCPCS: 36415-UA; 80053-TC; 80061-TC; 81001-TC; 82948-90; 83036-90; 84132-TC; 84443-TC; 85025-TC; 85652-TC; 86141-TC; 86592-TC; 87086-90; 87230-TC; 93005; 96374; J1815; J7030; Z7610